=== PATIENT | male | born 1975 | race Caucasian/White ===

== ENCOUNTER 2019-05-15 13:40 | Emergency (ER) | payer MEDICARE, MEDICAID ==
[~2019-05-15] VITALS: Ht 190.5 cm; Wt 102.1 kg
--- NOTE | 2019-05-15 13:45 | NUR ---
ED Nurse Note: CALLED PATIENT, PATIENT NOT IN WAITING ROOM.
[2019-05-15 14:00] VITALS: BP 125/80
--- NOTE | 2019-05-15 14:00 | NUR ---
ED Nurse Note: PT FROM HOME CAME IN DUE TO INTERMITTENT ABD. PAIN IN EPIGASTRIC AREA X 1 WEEK. DENIES N/V. AFEBRILE UPON TRIAGE. AAO X4, AMBULATORY WITH NO RESPIRATORY DISTRESS. FAMILY MEMBER AT THE BED SIDE.
--- NOTE | 2019-05-15 14:09 | NUR ---
ED Nurse Note: DR DOMINGUEZ AT THE BED SIDE.
[2019-05-15] MEDS ORDERED: Omnipaque-300 100ml vial INJ PRN (14:15)
--- NOTE | 2019-05-15 14:33 | NUR ---
ED Nurse Note: COLLECTED BLOOD/URINE THEN SENT.
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
[2019-05-15 15:00] LABS: APPEARANCE,URINE CLEAR; BILIRUBIN, URINE NEGATIVE (NEGATIVE); COLOR,URINE PALE YELLOW; GLUCOSE, URINE (UA) NEGATIVE (NEGATIVE); KETONES,URINE NEGATIVE (NEGATIVE); LEUKOCYTE ESTERASE ,URINE NEGATIVE (NEGATIVE); NITRITE,URINE NEGATIVE (NEGATIVE); PH,URINE 9 (4.5-8.0); PROTEIN,URINE NEGATIVE (NEGATIVE); UROBILINOGEN,URINE NORMAL MG/DL (0.0-1.0)
[2019-05-15 15:08] LABS: BASOPHILS % (AUTO) 1.6 % (0.0-2.0); EOSINOPHILS % (AUTO) 2.8 % (0.0-3.0); HEMATOCRIT 45.8 % (42.0-52.0); HEMOGLOBIN 16.4 G/DL (14.2-18.0); LYMPHOCYTES % (AUTO) 25.8 % (20.0-45.0); MEAN CORPUSCULAR VOLUME 90 FL (80-99); NEUTROPHILS % (AUTO) 61.9 % (45.0-75.0); PLATELET COUNT 243 K/UL (150-450); RED BLOOD COUNT 5.07 M/UL (4.70-6.10); RED CELL DISTRIBUTION WIDTH 9.9 % (11.6-14.8); WHITE BLOOD COUNT 7.4 K/UL (4.8-10.8)
[2019-05-15 15:11] LABS: INR 0.9 (0.9-1.1)
[2019-05-15 15:13] LABS: ANION GAP 4 mmol/L (5-15); BLOOD UREA NITROGEN 12 mg/dL (7-18); CALCIUM 9.1 MG/DL (8.5-10.1); CARBON DIOXIDE 32 MMOL/L (21-32); CHLORIDE 104 MMOL/L (98-107); CREATININE 1.2 MG/DL (0.55-1.30); POTASSIUM 4.2 MMOL/L (3.5-5.1); SODIUM 140 MMOL/L (136-145)
[2019-05-15 15:20] LABS: ALANINE AMINOTRANSFERASE 36 U/L (12-78); ALBUMIN 3.5 G/DL (3.4-5.0); ALKALINE PHOSPHATASE 81 U/L (46-116); ASPARTATE AMINO TRANSFERASE 24 U/L (15-37); BILIRUBIN,TOTAL 0.3 MG/DL (0.2-1.0); CREATINE KINASE 169 U/L (26-308)
[2019-05-15] MEDS ORDERED: AMLODIPINE BESYL5 MG ORAL (15:54)
[2019-05-15] MEDS ORDERED: PROZAC20 MG ORAL (15:55)
[2019-05-15] MEDS ORDERED: ZYPREXA10 MG ORAL (15:58)
[2019-05-15] MEDS ORDERED: PROPRANOLOL HCL20 MG ORAL (15:58)
[2019-05-15] MEDS ORDERED: DEPAKOTE250 MG PO (15:58)
[2019-05-15] MEDS ORDERED: HALDOL DEC50 MG/1 ML IM (15:59)
[2019-05-15] MEDS ORDERED: INVEGA SUS156 MG/11 IM (15:59)
[2019-05-15 16:18] VITALS: BP 121/86
--- NOTE | 2019-05-15 16:49 | Diagnostic Imaging Report ---
Clinical Indication: Intermittent abdominal pain in epigastric area times one week Technique: Patient given oral contrast. IV administration nonionic contrast. Venous phase spiral acquisition obtained through the abdomen and pelvis. Multiplanar reconstructions were generated. Total dose length product 1081 mGycm. CTDIvol(s) 17 mGy. Dose reduction achieved using automated exposure control Comparison: none Findings: No evidence of colonic diverticulosis or diverticulitis. There is equivocal mild wall thickening of the transverse colon, but this is probably an artifact of under distention. The appendix is normal. No small bowel wall thickening. No small bowel distention. Distal esophagus, stomach, duodenum are unremarkable. No free or loculated intraperitoneal gas or fluid is evident. The liver, gallbladder, bile ducts, pancreas, spleen, adrenals, kidneys are unremarkable. There are somewhat prominent and abutment retroperitoneal and mesenteric root nodes noted. No pelvic mass or adenopathy. No renal or ureteral calculi, hydronephrosis, or hydroureter demonstrated. The included lung bases demonstrate minimal posterior dependent atelectatic changes, are otherwise clear. The bones are unremarkable. Impression: Equivocal mild wall thickening of the transverse colon, probably artifact of under distention, but if real could indicate colitis, nonspecific as regards etiology. No acute process otherwise Nonspecific abundant but not frankly enlarged retroperitoneal and mesenteric root lymph nodes. The CT scanner at [facility] is accredited by the [employer] and the scans are performed using protocols designed to limit radiation exposure to as low as reasonably achievable to attain images of sufficient resolution adequate for diagnostic evaluation.
--- NOTE | 2019-05-15 17:22 | Diagnostic Imaging Report ---
Indication: Chest pain Technique: One view of the chest Comparison: none Findings: Lungs and pleural spaces are clear. Heart size is normal. Impression: No acute process
[2019-05-15] MEDS ORDERED: PEPCID AC20 M2 PO (18:07)
[2019-05-15] MEDS ORDERED: DICYCLOMINE HCL10 MG ORAL (18:07)
[2019-05-15 18:16] VITALS: BP 131/70
[2019-05-15 18:22] VITALS: BP 131/70
--- NOTE | 2019-05-15 18:22 | NUR ---
ER DISCHARGE NOTE: Patient is cleared to be discharged per ERMD, pt is aox4, on room air, with stable vital signs. pt was given dc and prescription instructions, pt was able to verbalize understanding, pt id band and iv site removed without complications. pt is able to ambulate with steady gait. pt took all belongings and left [facility].
== END 2019-05-15 18:22 | disposition home or self-care (01) ==
LOC: EMR 14:10
DX: K52.9 Noninfective gastroenteritis and colitis, unspecified (principal); I10 Essential (primary) hypertension; F20.9 Schizophrenia, unspecified; F17.200 Nicotine dependence, unspecified, uncomplicated; R07.9 Chest pain, unspecified
CPT/HCPCS: 36415; 71045; 74177; 80053; 81003; 82550; 83690; 84484; 85025; 85610; 85730; 93005; 96361; 96374; 99284; Q9965; S0028; J7030

== ENCOUNTER 2019-09-09 16:22 | Emergency (ER) | payer MEDICARE, MEDICAID ==
[~2019-09-09] VITALS: Ht 190.5 cm; Wt 104.3 kg
[~2019-09-09 16:22] MED LIST: AMLODIPINE BESYL5 MG ORAL; DEPAKOTE250 MG PO; DICYCLOMINE HCL10 MG ORAL; HALDOL DEC50 MG/1 ML IM; INVEGA SUS156 MG/11 IM; PEPCID AC20 M2 PO; PROPRANOLOL HCL20 MG ORAL; PROZAC20 MG ORAL; ZYPREXA10 MG ORAL
[2019-09-09 16:45] VITALS: BP 113/81
--- NOTE | 2019-09-09 16:46 | NUR ---
ED Nurse Note: Patient walked in to ER with caregiver due to cough, congestion x 3-4 days. Per caregiver patient become confused today, was saying things that does not make sense. Patient presented with audible wheezes, AAO x4, VSS at this time.
--- NOTE | 2019-09-09 17:10 | Emergency Room Report ---
History of Present Illness General Chief Complaint: Upper Respiratory Illness Source: Patient (Zoey Han) Present Illness HPI 44 YO Male presents to the ED C/O cough, congestion, yellow sputum, wheezing and feeling SOB with conversation and exertion x 3 days. Pt. reports chills but denies fevers. He reports that he is a daily smoker. He is unsure of his vaccination status. PT. denies ST, neck pain/stiffness or photophobia. Pt. with psychiatric hx. Pt. has caregiver who reports today he was "acting strangely" saying things that didn't make sense and was urinating in a cup and on the floor. She reports symptoms resolved at this time but is concerned for UTI. Pt. has been taking his prescribed psychiatric medications as directed. Denies recent travel or ill contacts. Pt. denies hx of asthma or COPD. He denies cardiac hx other than HTN. He denies CP, palpitations, or LE swelling. He denies dizziness or syncope. Pt. denies abdominal pain, tenderness, dysuria, frequency, hematuria or urgency. denies penile d/c. He denies constipation or diarrhea. He denies recent drug use. He has hx of meth use. (Zoey Han) Allergies: Coded Allergies: No Known Allergies (Unverified , 05/15/19) Patient History Past Medical History: see triage record, psych hx Past Surgical History: none Social History: Reports: drug use - meth Reviewed Nursing Documentation: PMH: Agreed; PSxH: Agreed (Zoey Han) Nursing Documentation-PMH Past Medical History: No History, Except For Hx Hypertension: Yes History Of Psychiatric Problem: Yes - psychosis (Zoey Han) Review of Systems All Other Systems: negative except mentioned in HPI (Zoey Han) Physical Exam Vital Signs Date Time Temp Pulse Resp B/P (MAP) Pulse Ox O2 Delivery O2 Flow Rate FiO2 09/09/19 16:34 98.4 87 18 113/81 (92) 92 Room Air Sp02 EP Interpretation: reviewed, normal General Appearance: no apparent distress, alert, GCS 15, non-toxic Head: normocephalic, atraumatic Eyes: bilateral eye normal inspection, bilateral eye PERRL ENT: hearing grossly normal, normal pharynx, normal voice, uvula midline, moist mucus membranes Neck: full range of motion Respiratory: chest non-tender, no respiratory distress, no accessory muscle use , speaking full sentences, wheezing - audible wheezes Cardiovascular #1: regular rate, rhythm, no edema, normal capillary refill Gastrointestinal: non tender, soft Musculoskeletal: normal range of motion, gait/station normal, non-tender Neurologic: alert, motor strength/tone normal, oriented x3, sensory intact, responsive, speech normal Psychiatric: judgement/insight normal, memory normal, mood/affect normal, no suicidal/homicidal ideation Skin: no rash, normal color Lymphatic: no adenopathy (Zoey Han) Medical Decision Making PA Attestation Dr. Oates Is my supervising Physician whom patient management has been discussed with. (Zoey Han) Diagnostic Impression: Primary Impression: Bronchitis ER Course 44 YO Male presents to the ED C/O cough, congestion, yellow sputum, wheezing and feeling SOB with conversation and exertion x 3 days. Pt. reports chills but denies fevers. He reports that he is a daily smoker. He is unsure of his vaccination status. PT. denies ST, neck pain/stiffness or photophobia. Pt. with psychiatric hx. Pt. has caregiver who reports today he was "acting strangely" saying things that didn't make sense and was urinating in a cup and on the floor. She reports symptoms resolved at this time but is concerned for UTI. Pt. has been taking his prescribed psychiatric medications as directed. Denies recent travel or ill contacts. Pt. denies hx of asthma or COPD. He denies cardiac hx other than HTN. He denies CP, palpitations, or LE swelling. He denies dizziness or syncope. Pt. denies abdominal pain, tenderness, dysuria, frequency, hematuria or urgency. Denies penile d/c. He denies constipation or diarrhea. He denies recent drug use. He has hx of meth use. Ddx considered but are not limited to URI, pneumonia, PE, strep pharyngitis, meningitis. Vital signs: Pt.is afebrile VS are WNL Pt. 02 Saturation was 92-03% H&PE are most consistent with bronchitis ORDERS: -CXR: unremarkable -EKG 85 NSR -UA: pt. was unable to provide urine during ED stay. -UDS: pt. was unable to provide urine during ED stay. ED INTERVENTIONS: - Albuterol HHN -Duo NEb x 1 -Prednisone 60mg PO -Upon re-assessment O2 saturation has improved.Pt. lung sounds have improved but still have some expiratory wheezes. Will d/c with short course of steroids along with inhaler for close outpatient follow up with a PMD, and strict ED return precautions. -Both pt. and SAFETY AND HEALTH MANAGER at bedside from his program verbalize their understanding and agreement with the proposed treatment plan along with ED return promptly with any worsening or new symptoms. DISCHARGE: At this time pt. is stable for d/c to home. Will provide printed patient care instructions, and any necessary prescriptions. Care plan and follow up instructions have been discussed with the patient prior to discharge. (Zoey Han) EKG Diagnostic Results EP Interpretation: Dr. Oates Rate: normal - 86 bpm Rhythm: NSR ST Segments: no acute changes ASA given to the pt in ED: No PA Scribe Text This Interpretation was scribed by RACHID Han. (Zoey Han) Chest X-Ray Diagnostic Results Chest X-Ray Diagnostic Results : Chest X-Ray Ordered: Yes # of Views/Limited/Complete: 1 View Indication: Shortness of Breath EP Interpretation: Yes PA Xray: Interpretation reviewed, by supervising MD, and agrees with findings. Interpretation: no consolidation, no effusion, no pneumothorax, no acute cardiopulmonary disease Impression: No acute disease Electronically Signed by: Zoey Han PA-C (Zoey Han) Chest X-Ray Diagnostic Results : Electronically Signed by: Erna Cherry documentation of Xray reviewed by me and is accurate, Fernando Oates MD (Fernando Oates MD) Last Vital Signs Date Time Temp Pulse Resp B/P (MAP) Pulse Ox O2 Delivery O2 Flow Rate FiO2 09/09/19 16:45 98.4 18 113/81 92 Room Air 09/09/19 16:45 87 Status: improved (Zoey Han) Disposition: HOME, SELF-CARE Condition: Stable Scripts D-Methorphan Hb/Acetaminophen (Daytime Cold & Cough Liquid) 237 Ml Liquid 5 ML PO Q6HR, #237 ML Prov: Zoey Han 09/09/19 Prednisone* (PREDNISONE*) 20 Mg Tablet 40 MG ORAL DAILY for 4 Days, #8 TAB Prov: Zoey Han 09/09/19 Albuterol Sulfate* (ALBUTEROL SULFATE MDI*) 8.5 Gm Hfa.aer.ad 2 PUFF INH Q3H, #1 INH 0 Refills Prov: Zoey Han 09/09/19 Patient Instructions: Acute Bronchitis Additional Instructions: Take medications as directed. Follow up with a Primary Care Provider in 3-5 days, even if your symptoms have resolved. --Please review list of primary care clinics, if you do not already have a primary care provider Return sooner to ED if new symptoms occur, or current symptoms become worse. - Please note that this Emergency Department Report was dictated using Dr. Jerry's [employer] engineer technology software, occasionally this can lead to erroneous entry secondary to interpretation by the dictation equipment. Zoey Han Sep 09, 2019 17:10 Fernando Oates MD Sep 10, 2019 05:38
[2019-09-09] MEDS ORDERED: Albuterol ud Inhalation HHN ONE (17:15)
[2019-09-09] MEDS ORDERED: Albuterol/Ipratropium 3ml neb HHN ONE (18:00)
--- NOTE | 2019-09-09 19:30 | NUR ---
ED Nurse Note: Recieved report from sandeep Wilson to resume care, pt in bed awake and alert, pt has SUPERVISOR ORE DRESSING hand plug shaper at bedside from facility which he came, here with c/o cough and congestion, pt denies chest pain or any pain, o2 sat=98% on ra, no sob or labored breathing or cough noted, will resume care as ordered and closely monitor.
[2019-09-09] MEDS ORDERED: PREDNISONE20 MG ORAL ×2 (19:35)
[2019-09-09] MEDS ORDERED: DAYTIME COLD &237 ML PO ×2 (19:35)
[2019-09-09] MEDS ORDERED: ALBUTEROL SULF8.5 GM INH ×2 (19:35)
[2019-09-09 19:45] VITALS: BP 119/73
[2019-09-09 19:55] VITALS: BP 119/73
--- NOTE | 2019-09-09 19:55 | NUR ---
ER DISCHARGE NOTE: Patient is cleared to be discharged per ERMD, pt is aox4, on room air, with stable vital signs. pt was given dc and prescription instructions, pt was able to verbalize understanding, pt id band removed without complications. pt is able to ambulate with steady gait. pt took all belongings. header set up operator with pt.
--- NOTE | 2019-09-10 10:42 | Diagnostic Imaging Report ---
Indication: Chest pain Technique: One view of the chest Comparison: 05/15/2019 Findings: Lungs and pleural spaces are clear. Heart size is normal. No significant interim change Impression: No acute process
== END 2019-09-09 19:55 | disposition home or self-care (01) ==
LOC: EMR 19:00
DX: J20.9 Acute bronchitis, unspecified (principal); I10 Essential (primary) hypertension
CPT/HCPCS: 71045; 93005; 99284; J7512; J7620

== ENCOUNTER 2019-09-13 15:05 | Inpatient (IN) | payer MEDICARE, MEDICAID ==
[~2019-09-13] VITALS: Ht 190.5 cm; Wt 108.0 kg
[~2019-09-13 15:05] MED LIST changes: +ALBUTEROL SULF8.5 GM INH; +DAYTIME COLD &237 ML PO; +PREDNISONE20 MG ORAL
[2019-09-13] MEDS ORDERED: MIRTAZAPINE15 MG ORAL (15:22)
[2019-09-13] MEDS ORDERED: BENADRYL25 MG ORAL (15:22)
[2019-09-13] MEDS ORDERED: BENZTROPINE MESY1 MG ORAL (15:22)
[2019-09-13] MEDS ORDERED: PROZAC40 MG ORAL (15:22)
[2019-09-13] MEDS ORDERED: ATIVAN2 MG ORAL (15:22)
--- NOTE | 2019-09-13 15:23 | NUR ---
ED Nurse Note: Patient walked in from [facility] accompanied by Unified Communications Engineer d/t fall after getting up today around 1330. Patient became weak when he stood up and fell, hit his right eye when falling and has a laceration on right eye. Patient AxO x 4, no s/s of acute distress. Urine collected and sent to lab.
[2019-09-13 15:25] VITALS: BP 126/89
--- NOTE | 2019-09-13 15:35 | NUR ---
ED Nurse Note: 20 g IV started in right AC, blood drawn and sent to lab. 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
--- NOTE | 2019-09-13 15:50 | NUR ---
ED Nurse Note: Dr. Hirsch at bedside.
--- NOTE | 2019-09-13 16:23 | Diagnostic Imaging Report ---
Indication: Chest pain Technique: One view of the chest Comparison: 09/09/2019 Findings: Lungs and pleural spaces are clear. Heart size is normal. No significant change Impression: No acute process
[2019-09-13 16:29] LABS: BILIRUBIN, URINE NEGATIVE (NEGATIVE); GLUCOSE, URINE (UA) NEGATIVE (NEGATIVE); KETONES,URINE 1+ (NEGATIVE); LEUKOCYTE ESTERASE ,URINE 1+ (NEGATIVE); NITRITE,URINE NEGATIVE (NEGATIVE); PH,URINE 7 (4.5-8.0); PROTEIN,URINE 1+ (NEGATIVE); UROBILINOGEN,URINE 4 MG/DL (0.0-1.0)
[2019-09-13 16:33] LABS: APPEARANCE,URINE SLIGHTLY CLOUDY; COLOR,URINE YELLOW
[2019-09-13 16:37] LABS: ANION GAP 12 mmol/L (5-15); BLOOD UREA NITROGEN 24 mg/dL (7-18); CALCIUM 9.3 MG/DL (8.5-10.1); CARBON DIOXIDE 27 MMOL/L (21-32); CHLORIDE 108 MMOL/L (98-107); CREATININE 1.1 MG/DL (0.55-1.30); POTASSIUM 5.5 MMOL/L (3.5-5.1); SODIUM 147 MMOL/L (136-145)
[2019-09-13 16:42] LABS: ALANINE AMINOTRANSFERASE 103 U/L (12-78); ALBUMIN 3.5 G/DL (3.4-5.0); ALBUMIN/GLOBULIN RATIO 0.9 (1.0-2.7); ALKALINE PHOSPHATASE 74 U/L (46-116); ASPARTATE AMINO TRANSFERASE 51 U/L (15-37); BILIRUBIN,TOTAL 0.3 MG/DL (0.2-1.0)
[2019-09-13 16:51] LABS: HEMATOCRIT 50.1 % (42.0-52.0); HEMOGLOBIN 16.3 G/DL (14.2-18.0); MEAN CORPUSCULAR VOLUME 96 FL (80-99); PLATELET COUNT 365 K/UL (150-450); RED BLOOD COUNT 5.24 M/UL (4.70-6.10); WHITE BLOOD COUNT 15.9 K/UL (4.8-10.8)
--- NOTE | 2019-09-13 16:54 | Emergency Room Report ---
History of Present Illness General Chief Complaint: Generalized Weakness Source: Patient, Friend Present Illness HPI This patient is residing in a rehabilitation facility. He has a history of drug dependence. He also has a history of schizophrenia. He has had a respiratory illness for the past week. He was seen here at [facility] a few days ago and diagnosed with bronchitis. He complains of cough with thick sputum production. He has been using the prednisone, albuterol inhaler and DayQuil and NyQuil. He states that he has been fatigued and has had generalized weakness that is been especially over the past few days. He states that today his legs gave out and he fell forward and hit his face on a hard object. He has a laceration of his right eyelid. He denies headache or neck pain. He denies blurry vision. He denies chest pain. He has no other complaints. Allergies: Coded Allergies: No Known Allergies (Unverified , 05/15/19) Patient History Past Medical History: see triage record, HTN, psych hx - Schizophrenia Social History: Denies: smoking, alcohol use, drug use Reviewed Nursing Documentation: PMH: Agreed; PSxH: Agreed Nursing Documentation-PMH Past Medical History: No History, Except For Hx Hypertension: Yes Review of Systems All Other Systems: negative except mentioned in HPI Physical Exam Vital Signs Date Time Temp Pulse Resp B/P (MAP) Pulse Ox O2 Delivery O2 Flow Rate FiO2 09/13/19 15:10 98.8 83 19 126/89 (101) 92 Room Air Sp02 EP Interpretation: reviewed, normal General Appearance: no apparent distress, alert, GCS 15, non-toxic Head: normocephalic, atraumatic Eyes: right eye other - R. eye with conjuctival erythema. No hyphema. Normal pupil and reactivity.; bilateral eye PERRL ENT: hearing grossly normal, normal pharynx, no angioedema, normal voice Neck: full range of motion, supple/symm/no masses Respiratory: chest non-tender, no respiratory distress, no retraction, no accessory muscle use, speaking full sentences, wheezing, expiration Cardiovascular #1: regular rate, rhythm, no edema Gastrointestinal: normal bowel sounds, non tender, soft, non-distended, no guarding, no rebound Rectal: deferred Genitourinary: normal inspection, no CVA tenderness Musculoskeletal: back normal, normal range of motion, gait/station normal, non- tender Neurologic: alert, motor strength/tone normal, oriented x3, sensory intact, responsive, speech normal Psychiatric: judgement/insight normal, memory normal, mood/affect normal, no suicidal/homicidal ideation Skin: no rash, normal color, laceration - Stellate laceration involving the medial upper and lower eyelid and corner of the eye, possible tear duct involvement. Medical Decision Making Diagnostic Impression: Primary Impression: Acute bronchospasm due to viral infection Additional Impression: Facial laceration ER Course This patient has had a week of cough and wheezing. The patient presents after a near syncopal episode and a fall with a laceration to the face today. I am concerned as this patient continues to have wheezing on exam. The patient was given breathing treatments here in the emergency department and as a precaution I gave the patient broad-spectrum antibiotics and I felt that this patient should be admitted for further pulmonary hygiene. The patient's globe exam appears intact. There is no evidence of a ruptured globe. However, the patient does have a complicated eyelid laceration that may involve the tear duct. Therefore, I contacted multiple plastic surgeons to repair this complicated laceration. The only plastic surgeon that was available was Dr. Eric Tinsley who had to commute from his office in [place]. I attempted 5 other plastic surgeons and none of them were available. Dr. Tinsley requested that he do the repair in the emergency department and so the patient did board in the emergency department until his arrival which delayed his movement to the inpatient room. I felt that it was important that this laceration be repaired for proper healing and closure of the eyelids and repair of the tear duct. See Dr. Tinsley's procedure note. Laboratory Tests Test 09/13/19 15:35 White Blood Count 15.9 K/UL (4.8-10.8) H Red Blood Count 5.24 M/UL (4.70-6.10) Hemoglobin 16.3 G/DL (14.2-18.0) Hematocrit 50.1 % (42.0-52.0) Mean Corpuscular Volume 96 FL (80-99) Mean Corpuscular Hemoglobin 31.1 PG (27.0-31.0) H Mean Corpuscular Hemoglobin Concent 32.6 G/DL (32.0-36.0) Red Cell Distribution Width 13.0 % (11.6-14.8) Platelet Count 365 K/UL (150-450) Mean Platelet Volume 7.3 FL (6.5-10.1) Neutrophils (%) (Auto) % (45.0-75.0) Lymphocytes (%) (Auto) % (20.0-45.0) Monocytes (%) (Auto) % (1.0-10.0) Eosinophils (%) (Auto) % (0.0-3.0) Basophils (%) (Auto) % (0.0-2.0) Differential Total Cells Counted 100 Neutrophils % (Manual) 82 % (45-75) H Lymphocytes % (Manual) 15 % (20-45) L Monocytes % (Manual) 3 % (1-10) Eosinophils % (Manual) 0 % (0-3) Basophils % (Manual) 0 % (0-2) Band Neutrophils 0 % (0-8) Platelet Estimate Adequate Platelet Morphology Normal Hypochromasia 2+ Anisocytosis 2+ Urine Color Yellow Urine Appearance Slightly cloudy Urine pH 7 (4.5-8.0) Urine Specific [place] 1.010 (1.005-1.035) Urine Protein 1+ (NEGATIVE) H Urine Glucose (UA) Negative (NEGATIVE) Urine Ketones 1+ (NEGATIVE) H Urine Blood 1+ (NEGATIVE) H Urine Nitrite Negative (NEGATIVE) Urine Bilirubin Negative (NEGATIVE) Urine Urobilinogen 4 MG/DL (0.0-1.0) H Urine Leukocyte Esterase 1+ (NEGATIVE) H Urine RBC 2-4 /HPF (0 - 0) H Urine WBC 5-10 /HPF (0 - 0) H Urine Squamous Epithelial Cells Occasional /LPF Urine Bacteria Few /HPF (NONE) Urine Mucus Many /LPF (NONE/OCC) H Sodium Level 147 MMOL/L (136-145) H Potassium Level 5.5 MMOL/L (3.5-5.1) H Chloride Level 108 MMOL/L (98-107) H Carbon Dioxide Level 27 MMOL/L (21-32) Anion Gap 12 mmol/L (5-15) Blood Urea Nitrogen 24 mg/dL (7-18) H Creatinine 1.1 MG/DL (0.55-1.30) Estimate Glomerular Filtration Rate > 60 mL/min (>60) Glucose Level 126 MG/DL (74-106) H Calcium Level 9.3 MG/DL (8.5-10.1) Total Bilirubin 0.3 MG/DL (0.2-1.0) Aspartate Amino Transferase (AST) 51 U/L (15-37) H Alanine Aminotransferase (ALT) 103 U/L (12-78) H Alkaline Phosphatase 74 U/L (46-116) Troponin I 0.000 ng/mL (0.000-0.056) Total Protein 7.3 G/DL (6.4-8.2) Albumin 3.5 G/DL (3.4-5.0) Globulin 3.8 g/dL Albumin/Globulin Ratio 0.9 (1.0-2.7) L Urine Opiates Screen Negative (NEGATIVE) Urine Barbiturates Screen Negative (NEGATIVE) Phencyclidine (PCP) Screen Negative (NEGATIVE) Urine Amphetamines Screen Negative (NEGATIVE) Urine Benzodiazepines Screen Negative (NEGATIVE) Urine Cocaine Screen Negative (NEGATIVE) Urine Marijuana (THC) Screen Negative (NEGATIVE) Microbiology Date/Time Source Procedure Growth Status 09/13/19 15:35 Nasal Nares - Final Complete 09/13/19 15:35 Nasal Nares - Final Complete EKG Diagnostic Results Rate: normal Rhythm: NSR ST Segments: no acute changes Rhythm Strip Diag. Results EP Interpretation: yes Rate: 70's Rhythm: NSR, no PVC's, no ectopy Chest X-Ray Diagnostic Results Chest X-Ray Diagnostic Results : Chest X-Ray Ordered: Yes # of Views/Limited/Complete: 1 View Indication: Shortness of Breath EP Interpretation: Yes Interpretation: no consolidation, no effusion, no pneumothorax, no acute cardiopulmonary disease Impression: No acute disease Electronically Signed by: Diann Donnelly DO Last Vital Signs Date Time Temp Pulse Resp B/P (MAP) Pulse Ox O2 Delivery O2 Flow Rate FiO2 09/13/19 15:25 98.8 86 19 126/89 98 Room Air Disposition: ADMITTED INPATIENT Condition: Serious Referrals: NOT CHOSEN IPA/,REFERRING (PCP) Diann Donnelly DO Sep 13, 2019 16:54
[2019-09-13 17:00] VITALS: BP 128/87
[2019-09-13] MEDS ORDERED: cefTRIAXone 1 GM in NS 55 ML IVPB ONE (17:00)
[2019-09-13] MEDS ORDERED: Ipratropium 0.02% Inh Soln 2.5ml UD HHN ONE (17:45)
[2019-09-13] MEDS ORDERED: Albuterol ud Inhalation HHN ONE (17:45)
[2019-09-13] MEDS ORDERED: Ipratropium 0.02% Inh Soln 2.5ml UD ONE (17:46)
--- NOTE | 2019-09-13 19:05 | NUR ---
HAND-OFF: Report given to Nneka RICHEY.
[2019-09-13] MEDS ORDERED: Lidocaine 2% MPF 5ml Vial INJ ONE (19:30)
[2019-09-13 19:36] VITALS: BP 140/92
--- NOTE | 2019-09-13 19:39 | NUR ---
ER Nurse Note: Pt calm, alert, no signs of distress. Pt on 1L MC O2 for comfort. Pt is spitting thick white mucus with slight cough. VSS. Meds pulled for MD; awaiting plastic surgeon for LT eye. All safety measures met; will continue to montior.
--- NOTE | 2019-09-13 20:13 | NUR ---
dionne pereyra (mother) [phone]
--- NOTE | 2019-09-13 20:29 | NUR ---
ER Nurse Note: Pt condition remains at baseline. Dr. Kaplan at bedside.
[2019-09-13 21:03] VITALS: BP 136/86
--- NOTE | 2019-09-13 21:15 | NUR ---
ER Nurse Note: Report given to ROSSI Rosas for continuty of care. Pt VSS, no signs of distress. SLIV patent. All belongings with pt.
[2019-09-13] MEDS ORDERED: Nitroglycerin Subl 0.4mg tab SL PRN (21:30)
[2019-09-13] MEDS ORDERED: LORazepam Inj 2mg/ml 1ml IV PRN (21:30)
[2019-09-13] MEDS ORDERED: Albuterol/Ipratropium 3ml neb HHN PRN (21:30)
--- NOTE | 2019-09-13 21:30 | NUR ---
ER Nurse Note: Pt transfered to 409-2.
--- NOTE | 2019-09-13 22:00 | NUR ---
NURSE NOTES: Patient in bed, awake, alert x 4. Able to make needs known. S/P fall from home. Yellow gown, yellow socks on. Educated patient regarding using call light or any help needed. Informed patient if he wants to to sit on the side of the bed first and wait for nurse. Bed in low and locked position provided safe environment. Skin is warm and dry to touch. Noted with right eye laceration, sutures noted. No pain at the site at the moment. Abdomen is soft. IV site noted. Call light is at bedside. Will continue plan of care.
--- NOTE | 2019-09-13 22:00 | Consultation ---
DATE OF CONSULTATION: 09/13/2019 HISTORY OF PRESENT ILLNESS: This is a 44-year-old gentleman with a past history significant for alcohol use. The patient claims that he felt euphoric and fell forward hitting the front of his face. The patient sustained a complicated laceration on his upper lower eyelid and along his medial canthal region. The patient was seen by the ER physicians here at [facility] where a plastic surgery was called for evaluation of his injuries. PHYSICAL EXAMINATION: On directed physical exam on the eye, there was a complicated laceration which extended from the lid margin on the upper eyelid superiorly approximately a centimeter up. He has also 2 lacerations, 1 on the medial canthal area in a V-type pattern with some avulsion of skin. On the lower lid, there was a laceration near the lacrimal duct, however, that cannot be examined closely due to the patient's condition and extended inferiorly towards the inferior of the mid cheek area. A discussion was done with the patient concerning the injury. IMPRESSION: This is a 44-year-old gentleman with the complex upper lower eyelid laceration on the right side. PLAN: Repair of the laceration. Medardo Tinsley M.D. DR: JAELYN JOB#: [id number] CC: Medardo Tinsley M.D.; [address] [place] [address] Rd, [address]; [place] [address]
--- NOTE | 2019-09-13 22:15 | Procedure Note ---
DATE OF PROCEDURE: 09/13/2019 PREOPERATIVE DIAGNOSIS: Complex laceration of the right upper and lower eyelid, length approximately 4 cm. POSTOPERATIVE DIAGNOSIS: Complex laceration of the right upper and lower eyelid, length approximately 4 cm. PROCEDURE: Repair of complex laceration of the right upper and lower eyelid. SURGEON: Medardo Tinsley M.D. ANESTHESIA: Done under local. ESTIMATED BLOOD LOSS: Less than 5 mL. COMPLICATIONS: None. INDICATION FOR THE PROCEDURE: This is a 44-year-old gentleman, who sustained a complex laceration of his right upper and lower eyelid. The patient was seen by the emergency room where plastic surgery was called for repair of this laceration. DESCRIPTION OF THE PROCEDURE: The patient was seen in the emergency room where the wound was evaluated. The wound was cleaned with sterile water. The wound was anesthetized with 3 mL of 2% lidocaine with epinephrine. Following this, identification of the edges of the wound were cleaned. The laceration on the upper eyelids were then repaired with 5-0 fast-absorbing plain gut sutures. Cleaning of the medial canthal and lower lids were also done. The edges of the wound were then also reapproximated with 5-0 plain gut sutures. At the end of the case, the patient tolerated the procedure well. The patient is presently being admitted to the inpatient facility due to his respiratory status. Medardo Tinsley M.D. DR: JAELYN JOB#: [id number] CC: Medardo Tinsley M.D.; [address] [place] [address] Rd, [address]; [place] [address]
[2019-09-13] MEDS: Piperacillin/Tazobactam 3.375 GM in D5W 110 ML IVPB SCH (22:26)
[2019-09-14] VITALS (7 sets, daily range): BP systolic 117–135; BP diastolic 83–98
[2019-09-14] MEDS ORDERED: Solu-MEDROL 125mg Inj IV SCH
--- NOTE | 2019-09-14 00:30 | NUR ---
NURSE NOTES: messaged pharmacy regarding patient not listed on the pyxis. records technician was informed, refractory products supervisor informed. Unable to remove medication.
--- NOTE | 2019-09-14 01:15 | NUR ---
NURSE NOTES: Spoke to pharmacy ([facility]) after hours, regarding patient not listed in the pyxis. Was informed that it has to do with admitting.
--- NOTE | 2019-09-14 01:30 | NUR ---
NURSE NOTES: Block Paver Melvina pulled the vacation via inventory count, count before pulling solu-medrol 125 mg is 6. After medication pulled out, remaining 5 in the bin.
[2019-09-14] MEDS: Solu-MEDROL 125mg Inj IV SCH ×3 (01:44→12:27)
[2019-09-14] MEDS: Piperacillin/Tazobactam 3.375 GM in D5W 110 ML IVPB SCH ×3 (05:53→21:00)
--- NOTE | 2019-09-14 07:07 | NUR ---
HAND-OFF: Report given to ROSSI Trivedi.
--- NOTE | 2019-09-14 07:23 | NUR ---
NURSE NOTES: Endorsed to next shift, patient is fall risk. Yellow gown, yellow socks. Educated patient regarding using call light. Oriented patient to room. High fall risk endorsed to next shift nurse. Bed in low and locked position. Provided safe environment. call light is at bedside.
--- NOTE | 2019-09-14 08:00 | NUR ---
NURSE NOTES: Patient alert and oriented,respirations unlabored.Patient sitting up and eating breakfast.No bleeding noted from laceration over the left eye.No complaints at this time.Call light within reach,and reinforce to patient to use ariana light for assist.
[2019-09-14] MEDS ORDERED: OLANZapine 10mg tab ORAL SCH (09:00)
[2019-09-14] MEDS ORDERED: Heparin 5000 units/ml inj SUBQ SCH (09:00)
--- NOTE | 2019-09-14 10:20 | NUR ---
CASE MANAGEMENT:INITIAL REVIEW 44 YR OLD MALE FROM HOME/REHABILITATION CENTER CC; GENERALIZED WEAKNESS SI;AC BRONCHOSPASM D/T VIRAL INFECTION. FACIAL LACERATION. 98.8 83 22 140/92 92% ON RA WBC 15.9 NA+ 147 K+ 5.5 CL 108 IS;IVF NS BOLUS ROCEPHIN IV ONCE DUO NEB HHN ONCE RT EYELID LACERATION REPAIR ADMITTED TO MED SURG MED SURG STATUS DCP;FROM [facility] STARTS NOW INTERIM HOUSING
--- NOTE | 2019-09-14 10:32 | Diagnostic Imaging Report ---
. Indication: Pain, trauma, status post fall Technique: Noncontrast spiral acquisitions obtained through the orbits Multiplanar reconstructions were generated. Total dose length product 1200 mGycm. CTDIvol(s) 53 mGy. Radiation dose was minimized using automated exposure control Comparison: none Findings: Soft tissue gas is seen in the preseptal right orbit, particularly medially, immediately adjacent to and surrounding the right optic globe. A very small amount of gas is also seen superomedially in the retroseptal orbital fat immediately adjacent to the optic globe. There is also some gas in the anterior medial orbital retroseptal fat immediately adjacent to the anterior lamina appreciated. The gross of the optic globe appear intact, and there is normal attenuation of the intrahepatic contents. No soft tissue gas within the right optic globe is demonstrated. There is some irregularity of the anterior nasal bone. There is no significant overlying soft tissue swelling The nasal septum appears intact. The maxillary nasal spine is not included in the imaging volume. The sinuses are clear. The visualized intracranial structures are unremarkable. Impression: Soft tissue gas surrounding the optic globe, as described, consistent with stated clinical history of penetrating trauma. No definite evidence of injury of the optic globe itself. Nasal bone deformity, acuity indeterminate fracture possible The CT scanner at [facility] is accredited by the [employer] and the scans are performed using protocols designed to limit radiation exposure to as low as reasonably achievable to attain images of sufficient resolution adequate for diagnostic evaluation.
[2019-09-14] MEDS: Depakote 500mg tab ORAL SCH (11:03)
[2019-09-14] MEDS: Theophylline ER 100mg ORAL SCH ×2 (11:05→21:00)
[2019-09-14] MEDS: OLANZapine 10mg tab ORAL SCH (11:05)
[2019-09-14] MEDS: Heparin 5000 units/ml inj SUBQ SCH ×2 (11:14→21:01)
--- NOTE | 2019-09-14 14:56 | Consultation ---
History of Present Illness General Date patient seen: Sep 14, 2019 Chief Complaint: Generalized Weakness Present Illness HPI 44 year old male with a history of schizophrenia, residing in a rehabilitation facility because of drug dependence presented to ER after an episode of fall and also complains of cough with thick sputum production. He states that he has been fatigued and has had generalized weakness and his legs gave out and he fell forward and hit his face on a hard object. He had a laceration of his right eyelid. He denies headache or neck pain. He was seen last night by a plastic surgeon who sutured the complex laceration of the eyelid. He is admitted for acute bronchitis and dyspnea. Allergies: Coded Allergies: No Known Allergies (Unverified , 05/15/19) Medication History Scheduled Amlodipine Besylate* (Amlodipine Besylate*), 5 MG ORAL DAILY, (Reported) Benztropine Mesylate* (Benztropine Mesylate*), 1 MG ORAL BID, (Reported) Diphenhydramine Hcl* (Benadryl*), 50 MG ORAL DAILY, (Reported) Divalproex Sodium* (Depakote*), 500 MG PO DAILY, (Reported) Divalproex Sodium* (Depakote*), 1,000 MG PO DAILY, (Reported) Fluoxetine Hcl* (Prozac*), 60 MG ORAL DAILY, (Reported) Mirtazapine* (Remeron*), 7.5 MG ORAL BEDTIME, (Reported) Olanzapine* (Zyprexa*), 40 MG ORAL DAILY, (Reported) Propranolol Hcl* (Inderal*), 30 MG ORAL BID, (Reported) Scheduled PRN Lorazepam* (Ativan*), 2 MG ORAL BID PRN for Agitation, (Reported) Patient History Healthcare decision maker Resuscitation status Advanced Directive on File Past Medical/Surgical History Past Medical/Surgical History: (1) Purulent bronchitis (2) Drug dependency (3) History of psychiatric disorder Review of Systems All Other Systems: negative except mentioned in HPI Physical Exam General Appearance: WD/WN, alert Lines, tubes and drains: central line HEENT: normocephalic, atraumatic Neck: non-tender, normal alignment Respiratory/Chest: chest wall non-tender, lungs clear, normal breath sounds Cardiovascular/Chest: normal peripheral pulses, normal rate Last 24 Hour Vital Signs Date Time Temp Pulse Resp B/P (MAP) Pulse Ox O2 Delivery O2 Flow Rate FiO2 09/14/19 12:00 98.5 87 19 127/83 (98) 96 09/14/19 11:00 117/83 (94) 09/14/19 09:00 Room Air 09/14/19 08:00 97.9 90 18 133/98 (110) 95 09/14/19 03:53 98.3 80 18 132/94 (107) 97 09/14/19 00:00 98.2 77 18 130/94 (106) 94 09/13/19 23:01 Room Air 09/13/19 21:30 98.2 77 20 136/86 96 Nasal Cannula 1.0 21 09/13/19 21:03 98.2 77 20 136/86 96 Nasal Cannula 1.0 09/13/19 19:36 98.2 78 22 140/92 98 Nasal Cannula 1.0 09/13/19 17:55 81 20 99 Room Air 21 76 20 94 09/13/19 17:00 98.5 83 19 128/87 100 Room Air 09/13/19 15:25 98.8 86 19 126/89 98 Room Air 09/13/19 15:25 83 19 Room Air 09/13/19 15:10 98.8 83 19 126/89 (101) 92 Room Air Intake and Output 09/13/19 09/14/19 19:00 07:00 Intake Total 1000 ml 165.0 ml Balance 1000 ml 165.0 ml Intake Oral 0 ml IV Total 1000 ml 165.0 ml # Voids 1 Laboratory Tests Test 09/13/19 15:35 White Blood Count 15.9 K/UL (4.8-10.8) H Red Blood Count 5.24 M/UL (4.70-6.10) Hemoglobin 16.3 G/DL (14.2-18.0) Hematocrit 50.1 % (42.0-52.0) Mean Corpuscular Volume 96 FL (80-99) Mean Corpuscular Hemoglobin 31.1 PG (27.0-31.0) H Mean Corpuscular Hemoglobin Concent 32.6 G/DL (32.0-36.0) Red Cell Distribution Width 13.0 % (11.6-14.8) Platelet Count 365 K/UL (150-450) Mean Platelet Volume 7.3 FL (6.5-10.1) Neutrophils (%) (Auto) % (45.0-75.0) Lymphocytes (%) (Auto) % (20.0-45.0) Monocytes (%) (Auto) % (1.0-10.0) Eosinophils (%) (Auto) % (0.0-3.0) Basophils (%) (Auto) % (0.0-2.0) Differential Total Cells Counted 100 Neutrophils % (Manual) 82 % (45-75) H Lymphocytes % (Manual) 15 % (20-45) L Monocytes % (Manual) 3 % (1-10) Eosinophils % (Manual) 0 % (0-3) Basophils % (Manual) 0 % (0-2) Band Neutrophils 0 % (0-8) Platelet Estimate Adequate Platelet Morphology Normal Red Blood Cell Morphology Normal Hypochromasia Anisocytosis Urine Color Yellow Urine Appearance Slightly cloudy Urine pH 7 (4.5-8.0) Urine Specific [place] 1.010 (1.005-1.035) Urine Protein 1+ (NEGATIVE) H Urine Glucose (UA) Negative (NEGATIVE) Urine Ketones 1+ (NEGATIVE) H Urine Blood 1+ (NEGATIVE) H Urine Nitrite Negative (NEGATIVE) Urine Bilirubin Negative (NEGATIVE) Urine Urobilinogen 4 MG/DL (0.0-1.0) H Urine Leukocyte Esterase 1+ (NEGATIVE) H Urine RBC 2-4 /HPF (0 - 0) H Urine WBC 5-10 /HPF (0 - 0) H Urine Squamous Epithelial Cells Occasional /LPF Urine Bacteria Few /HPF (NONE) Urine Mucus Many /LPF (NONE/OCC) H Sodium Level 147 MMOL/L (136-145) H Potassium Level 5.5 MMOL/L (3.5-5.1) H Chloride Level 108 MMOL/L (98-107) H Carbon Dioxide Level 27 MMOL/L (21-32) Anion Gap 12 mmol/L (5-15) Blood Urea Nitrogen 24 mg/dL (7-18) H Creatinine 1.1 MG/DL (0.55-1.30) Estimat Glomerular Filtration Rate > 60 mL/min (>60) Glucose Level 126 MG/DL (74-106) H Calcium Level 9.3 MG/DL (8.5-10.1) Total Bilirubin 0.3 MG/DL (0.2-1.0) Aspartate Amino Transf (AST/SGOT) 51 U/L (15-37) H Alanine Aminotransferase (ALT/SGPT) 103 U/L (12-78) H Alkaline Phosphatase 74 U/L (46-116) Troponin I 0.000 ng/mL (0.000-0.056) Total Protein 7.3 G/DL (6.4-8.2) Albumin 3.5 G/DL (3.4-5.0) Globulin 3.8 g/dL Albumin/Globulin Ratio 0.9 (1.0-2.7) L Urine Opiates Screen Negative (NEGATIVE) Urine Barbiturates Screen Negative (NEGATIVE) Phencyclidine (PCP) Screen Negative (NEGATIVE) Urine Amphetamines Screen Negative (NEGATIVE) Urine Benzodiazepines Screen Negative (NEGATIVE) Urine Cocaine Screen Negative (NEGATIVE) Urine Marijuana (THC) Screen Negative (NEGATIVE) Microbiology Date/Time Source Procedure Growth Status 09/13/19 15:35 Nasal Nares - Final Complete 09/13/19 15:35 Nasal Nares - Final Complete Height (Feet): 6 Height (Inches): 3.00 Weight (Pounds): 238 Medications Current Medications Medications (Trade) Dose Ordered Sig/William Route PRN Reason Start Time Stop Time Status Last Admin Dose Admin Albuterol/ Ipratropium (Albuterol/ Ipratropium) 3 ml EVERY 4 HOURS PRN HHN dyspnea 09/13/19 21:30 09/18/19 21:29 Amlodipine Besylate (Norvasc) 5 mg DAILY ORAL 09/14/19 09:00 10/14/19 08:59 Dextrose (Dextrose 50%) 25 ml Q30M PRN IV Hypoglycemia 09/13/19 21:30 10/13/19 21:29 Dextrose (Dextrose 50%) 50 ml Q30M PRN IV Hypoglycemia 09/13/19 21:30 10/13/19 21:29 Divalproex Sodium (Depakote) 1,000 mg DAILY ORAL 09/14/19 09:00 10/14/19 08:59 09/14/19 11:03 Fluoxetine HCl (PROzac) 60 mg DAILY ORAL 09/14/19 09:00 10/14/19 08:59 09/14/19 11:04 Heparin Sodium (Porcine) (Heparin 5000 units/ml) 5,000 units EVERY 12 HOURS SUBQ 09/14/19 09:00 10/14/19 08:59 09/14/19 11:14 Lorazepam (Ativan 2mg/ml 1ml) 0.5 mg Q4H PRN IV For Anxiety 09/13/19 21:30 09/20/19 21:29 Methylprednisolone Sodium Succinate (Solu-MEDROL) 60 mg EVERY 6 HOURS IV 09/14/19 00:00 10/14/19 00:00 09/14/19 12:27 Mirtazapine (Remeron) 7.5 mg BEDTIME ORAL 09/14/19 21:00 10/14/19 20:59 Nitroglycerin (Ntg) 0.4 mg Q5M X 3 DOSES PRN SL Prn Chest Pain 09/13/19 21:30 10/13/19 21:29 Olanzapine (ZyPREXA) 40 mg DAILY ORAL 09/14/19 09:00 10/14/19 08:59 09/14/19 11:05 Ondansetron HCl (Zofran) 4 mg Q6H PRN IVP Nausea & Vomiting 09/13/19 21:30 10/13/19 21:29 Piperacillin Sod/ Tazobactam Sod 3.375 gm/Dextrose 110 ml @ 27.5 mls/hr EVERY 8 HOURS IVPB 09/13/19 22:00 09/20/19 21:59 09/14/19 14:08 Promethazine HCl/ Codeine (Phenergan with Codeine) 5 ml EVERY 6 HOURS PRN ORAL cough 09/13/19 21:30 10/13/19 21:29 Temazepam (Restoril) 15 mg HSPRN PRN ORAL Insomnia 09/13/19 21:30 09/20/19 21:29 Theophylline ([place]) 100 mg EVERY 12 HOURS ORAL 09/14/19 09:00 10/14/19 08:59 09/14/19 11:05 Assessment/Plan Problem List: (1) Facial laceration ICD Codes: S01.81XA - Laceration without foreign body of other part of head, initial encounter SNOMED: 098098795, 840335532 (2) Acute bronchospasm due to viral infection ICD Codes: J98.01 - Acute bronchospasm; B34.9 - Viral infection, unspecified SNOMED: 86782342787921, 266807724 (3) Purulent bronchitis ICD Codes: J41.1 - Mucopurulent chronic bronchitis SNOMED: 63123095 (4) Drug dependency ICD Codes: F19.20 - Other psychoactive substance dependence, uncomplicated SNOMED: 219372776 Assessment/Plan: respiratory treatment check sputum antitussives B2 agonists prn ID to see for abx psychiatry to review psych meds dvt prophylaxis Ana Dorado MD Sep 14, 2019 14:56
--- NOTE | 2019-09-14 16:17 | NUR ---
SLOT OPERATIONS DIRECTOR CONSULT CAMELIA received a consult for substance abuse. CAMELIA met w/ pt and completed the assessment. Pt presents as cooperative and A&O4x. Pt is single, never and has no children. Pt resides at [facility] (court ordered program) [address] [place] [id number]. Pt has been participating in the program over a year. Pt denies current probation/parole. Pt is independent w/ ADLs and ambulatory w/o DMEs. Pt has hx of methamphetamine abuse. RUDS all negative. Emergency contact provided : Tracy Nuñez (mother) [phone] & [phone]. Pt plans to return his previous residence upon [place]. Pt has a behavioral health case manager named Tanya at [facility] [phone]. Pt does not share any concern/needs at this time. Signed: 09/14/19 at 1620 by MARJAN DENISE <Co-Signature Required>
--- NOTE | 2019-09-14 18:00 | NUR ---
NURSE NOTES: patient ambulated through out the day,gait is steady.No complaint of dizziness.Call light within reach.Continue to asses for fall risk.call light within reach.
--- NOTE | 2019-09-14 19:11 | NUR ---
NURSE NOTES: Patient is awake, alert , verbally responsive. able to make needs known. Yellow gown, socks noted. Fall risk, s/p fall from home. Educated patient to use call light. Oriented patient to the room. IV site noted. Iv fluid is infusing as ordered. No complaint of pain or discomfort ntoed. Abdomen is soft and non distended. SKin is warm and dry to touch. Bed in low and locked position provided safe environment. Call light is at bedside. Will continue plan of care.
--- NOTE | 2019-09-14 19:32 | NUR ---
HAND-OFF: Report given to Brad RICHEY fall risk assesment endorse.Patient gait steady.
--- NOTE | 2019-09-14 19:58 | History & Physical ---
History and Physical History & Physicial Dictated for Int Med-DR Tran no. [id number]. James Miner MD Sep 14, 2019 19:58
[2019-09-15] VITALS: BP 130/90
--- NOTE | 2019-09-15 01:30 | History and Physical Report ---
DATE OF ADMISSION: 09/13/2019 CHIEF COMPLAINT: The patient is a 44-year-old male, who presents with a chief complaint of laceration of the eyelid. HISTORY OF PRESENT ILLNESS: The patient was seen at [facility] 2 days previously for bronchitis. The patient was discharged back to [facility]. According to the patient, he has had increasing cough over the last couple of days. The patient has become increasingly fatigued. The patient states his leg gave out. The patient fell forward and struck his right eye. The patient suffered a laceration to the right upper and lower eyelid. The patient presented to [place] emergency room. The patient is admitted with laceration of the right upper and lower eyelid for surgical repair. REVIEW OF SYSTEMS: CONSTITUTIONAL: The patient denies weight loss or weight gain. The patient denies fevers or chills. HEENT: The patient denies ear or throat pain. The patient denies headache. CARDIOVASCULAR: The patient denies palpitation or chest pain. CHEST: The patient complains of cough productive of a yellowish sputum. The patient denies wheezes. ABDOMEN: The patient denies nausea, vomiting, diarrhea, or constipation. GENITOURINARY: The patient denies dysuria or increased frequency of urination. NEUROMUSCULAR: The patient denies seizures or generalized weakness. PAST MEDICAL HISTORY: Significant for, 1. Hypertension. 2. Schizophrenia. PAST SURGICAL HISTORY: The patient denies. CURRENT MEDICATIONS: Significant for, 1. Amlodipine 5 mg p.o. daily. 2. Benztropine 1 mg p.o. twice daily. 3. Depakote 500 mg p.o. daily. 4. Depakote 1000 mg p.o. at bedtime. 5. Prozac 60 mg p.o. daily. 6. Ativan 2 mg p.o. twice daily p.r.n. 7. Mirtazapine 7.5 mg p.o. at bedtime. 8. Zyprexa 40 mg p.o. daily. 9. Inderal 30 mg p.o. twice daily. ALLERGIES: No known drug allergies. SOCIAL HISTORY: The patient is single and is a resident of [facility]. The patient denies tobacco or alcohol use. PHYSICAL EXAMINATION: VITAL SIGNS: Temperature 98.3, respirations 18, pulse 97, and blood pressure 132/94. GENERAL: The patient is a well-developed and well-nourished male, in no apparent distress. HEENT: Eyes, pupils are equal and responsive to light and accommodation. Extraocular movements are intact. NECK: Supple without lymphadenopathy. CHEST: Lungs are clear to auscultation bilaterally without wheezes or rales. CARDIOVASCULAR: Regular rhythm and rate. S1, S2 are normal without murmurs, rubs, or gallops. ABDOMEN: Soft, nontender, and nondistended. Positive bowel sounds. No evidence of hepatosplenomegaly. Currently, no rebound or guarding noted. EXTREMITIES: Negative for clubbing, cyanosis, or edema. RECTAL/GENITAL: Not performed. NEUROLOGIC: Cranial nerves II through XII are grossly intact without focal deficits. Motor strength is 5/5 bilaterally. Deep tendon reflexes are 2+ plantar. LABORATORY STUDIES: WBC 15.9, hemoglobin 16.3, hematocrit 50.1, and platelets 365,000. Sodium 147, potassium 5.5, chloride 108, CO2 27, BUN 24, creatinine 1.1, and glucose 126. AST elevated at 51 and ALT elevated at 103. Troponin 0.0. A CT scan of the brain and orbits revealed soft tissue gas surrounding the right optic globe consistent with trauma otherwise without fractures. ASSESSMENT: This is a 44-year-old male. 1. Laceration of the right upper and lower eyelid. 2. Contusion of the right eye. 3. Fatigue. 4. Bronchitis. 5. Hypertension. 6. Schizophrenia. TREATMENT: 1. Laceration of the right upper and lower eyelid. An Ophthalmology consultation has been obtained with Dr. Medardo Tinsley. The patient is status post laceration repair under local anesthesia. We will follow recommendations of Ophthalmology. 2. Contusion of the right eye. 3. Bronchitis. The patient has been placed empirically on intravenous Zosyn and Solu-Medrol. A Pulmonary consultation has been obtained with Dr. Ana Dorado. We will follow recommendations pf Pulmonary. 4. Hypertension. Continue propranolol and amlodipine as above. 5. Schizophrenia. Continue Zyprexa, Remeron, Ativan, Prozac and Depakote as above. James Miner M.D. DR: STANFORD JOB#: [id number] CC:
[2019-09-15 04:07] VITALS: BP 132/84
[2019-09-15] MEDS: Piperacillin/Tazobactam 3.375 GM in D5W 110 ML IVPB SCH ×3 (05:35→21:22)
--- NOTE | 2019-09-15 07:11 | NUR ---
HAND-OFF: Report given to Jerez Rn.
[2019-09-15 07:15] LABS: HEMATOCRIT 44.3 % (42.0-52.0); HEMOGLOBIN 15.7 G/DL (14.2-18.0); MEAN CORPUSCULAR VOLUME 93 FL (80-99); PLATELET COUNT 366 K/UL (150-450); RED BLOOD COUNT 4.78 M/UL (4.70-6.10); RED CELL DISTRIBUTION WIDTH 11.1 % (11.6-14.8)
[2019-09-15 07:23] LABS: ALANINE AMINOTRANSFERASE 56 U/L (12-78); ALBUMIN/GLOBULIN RATIO 0.8 (1.0-2.7); ALKALINE PHOSPHATASE 59 U/L (46-116); ANION GAP 7 mmol/L (5-15); ASPARTATE AMINO TRANSFERASE 21 U/L (15-37); BILIRUBIN,TOTAL 0.2 MG/DL (0.2-1.0); BLOOD UREA NITROGEN 21 mg/dL (7-18); CALCIUM 8.7 MG/DL (8.5-10.1); CARBON DIOXIDE 30 MMOL/L (21-32); CHLORIDE 105 MMOL/L (98-107); CREATININE 0.9 MG/DL (0.55-1.30); PHOSPHORUS 4.3 MG/DL (2.5-4.9); POTASSIUM 4.3 MMOL/L (3.5-5.1); SODIUM 142 MMOL/L (136-145)
--- NOTE | 2019-09-15 07:39 | Pulmonology Progress Note ---
Assessment/Plan Assessment/Plan ASSESSMENT Acute bronchospasm Purulent bronchitis due to viral infection Complex right eyelid laceration Status post repair of complex laceration of the right upper and lower eyelid Drug dependency Hyperkalemia Transaminitis PLAN OF CARE MS floor O2 titrate to keep pulse ox above 92% pulmonary toilet with bronchodilator empiric abx, fup with cx IV steroids dc and changed to oral trial of theophylline antitussive as needed DVT prophylaxis s/p repair of laceration pain management monitor electrolytes and correct as needed trend LFT supportive care case discussed and evaluated by supervising physician Subjective Allergies: Coded Allergies: No Known Allergies (Unverified , 05/15/19) Subjective no fevers, leukocytosis with trend up, on steroids Objective Last 24 Hour Vital Signs Date Time Temp Pulse Resp B/P (MAP) Pulse Ox O2 Delivery O2 Flow Rate FiO2 09/15/19 04:07 98.3 95 18 132/84 (100) 96 09/15/19 00:00 97.9 90 18 130/90 (103) 96 09/14/19 21:00 Room Air 09/14/19 19:57 97.1 87 18 135/84 (101) 95 09/14/19 16:00 97.4 72 17 121/83 (96) 98 09/14/19 12:00 98.5 87 19 127/83 (98) 96 09/14/19 11:00 117/83 (94) 09/14/19 09:00 Room Air 09/14/19 09:00 88 117/83 09/14/19 08:00 97.9 90 18 133/98 (110) 95 Intake and Output 09/14/19 09/15/19 19:00 07:00 Intake Total 1800 ml 110.0 ml Balance 1800 ml 110.0 ml IV Total 110.0 ml Other 1800 ml # Voids 2 General Appearance: no acute distress HEENT: normocephalic, atraumatic, other - s.p repair laceration R eye Cardiovascular: normal rate Abdomen: normal bowel sounds, soft, non tender Extremities: no edema Neurologic/Psychiatric: alert, oriented x 3, responsive Musculoskeletal: normal muscle bulk Microbiology Date/Time Source Procedure Growth Status 09/13/19 15:35 Nasal Nares - Final Complete 09/13/19 15:35 Nasal Nares - Final Complete Laboratory Tests 09/15/19 05:50: White Blood Count 21.0H, Red Blood Count 4.78, Hemoglobin 15.7, Hematocrit 44.3 , Mean Corpuscular Volume 93, Mean Corpuscular Hemoglobin 32.9H, Mean Corpuscular Hemoglobin Concent 35.5, Red Cell Distribution Width 11.1L, Platelet Count 366, Mean Platelet Volume 6.5, Neutrophils (%) (Auto) , Lymphocytes (%) (Auto) , Monocytes (%) (Auto) , Eosinophils (%) (Auto) , Basophils (%) (Auto) , Neutrophils % (Manual) [Pending], Lymphocytes % (Manual) [Pending], Platelet Estimate [Pending], Platelet Morphology [Pending], Erythrocyte Sedimentation Rate [Pending], Sodium Level 142, Potassium Level 4.3 , Chloride Level 105, Carbon Dioxide Level 30, Anion Gap 7, Blood Urea Nitrogen 21H, Creatinine 0.9, Estimat Glomerular Filtration Rate > 60, Glucose Level 103 , Calcium Level 8.7, Phosphorus Level 4.3, Magnesium Level 2.6H, Total Bilirubin 0.2, Aspartate Amino Transf (AST/SGOT) 21, Alanine Aminotransferase ( ALT/SGPT) 56, Alkaline Phosphatase 59, C-Reactive Protein, Quantitative 2.2H, Total Protein 6.8, Albumin 3.0L, Globulin 3.8, Albumin/Globulin Ratio 0.8L Current Medications Medications (Trade) Dose Ordered Sig/William Route PRN Reason Start Time Stop Time Status Last Admin Dose Admin Albuterol/ Ipratropium (Albuterol/ Ipratropium) 3 ml EVERY 4 HOURS PRN HHN dyspnea 09/13/19 21:30 09/18/19 21:29 Amlodipine Besylate (Norvasc) 5 mg DAILY ORAL 09/14/19 09:00 10/14/19 08:59 Dextrose (Dextrose 50%) 25 ml Q30M PRN IV Hypoglycemia 09/13/19 21:30 10/13/19 21:29 Dextrose (Dextrose 50%) 50 ml Q30M PRN IV Hypoglycemia 09/13/19 21:30 10/13/19 21:29 Divalproex Sodium (Depakote) 1,000 mg DAILY ORAL 09/14/19 09:00 10/14/19 08:59 09/14/19 11:03 Fluoxetine HCl (PROzac) 60 mg DAILY ORAL 09/14/19 09:00 10/14/19 08:59 09/14/19 11:04 Heparin Sodium (Porcine) (Heparin 5000 units/ml) 5,000 units EVERY 12 HOURS SUBQ 09/14/19 09:00 10/14/19 08:59 09/14/19 21:01 Lorazepam (Ativan 2mg/ml 1ml) 0.5 mg Q4H PRN IV For Anxiety 09/13/19 21:30 09/20/19 21:29 Methylprednisolone Sodium Succinate (Solu-MEDROL) 60 mg DAILY IV 09/15/19 09:00 10/14/19 00:00 Mirtazapine (Remeron) 7.5 mg BEDTIME ORAL 09/14/19 21:00 10/14/19 20:59 09/14/19 21:00 Nitroglycerin (Ntg) 0.4 mg Q5M X 3 DOSES PRN SL Prn Chest Pain 09/13/19 21:30 10/13/19 21:29 Olanzapine (ZyPREXA) 40 mg DAILY ORAL 09/14/19 09:00 10/14/19 08:59 09/14/19 11:05 Ondansetron HCl (Zofran) 4 mg Q6H PRN IVP Nausea & Vomiting 09/13/19 21:30 10/13/19 21:29 Piperacillin Sod/ Tazobactam Sod 3.375 gm/Dextrose 110 ml @ 27.5 mls/hr EVERY 8 HOURS IVPB 09/13/19 22:00 09/20/19 21:59 09/15/19 05:35 Promethazine HCl/ Codeine (Phenergan with Codeine) 5 ml EVERY 6 HOURS PRN ORAL cough 09/13/19 21:30 10/13/19 21:29 Temazepam (Restoril) 15 mg HSPRN PRN ORAL Insomnia 09/13/19 21:30 09/20/19 21:29 Theophylline (Milton-Dur) 100 mg EVERY 12 HOURS ORAL 09/14/19 09:00 10/14/19 08:59 09/14/19 21:00 Viry Myers MAJOR ASSEMBLER Sep 15, 2019 07:39
[2019-09-15 07:46] VITALS: BP 120/80
--- NOTE | 2019-09-15 08:08 | NUR ---
NURSE NOTES: Received patient in bed awake. No SOB or acute distress. IV line intact and patent. HOB elevated. Bed locked in lowest position. Call light within reach. Will continue plan of care.
--- NOTE | 2019-09-15 08:17 | NUR ---
NURSE NOTES: Patient taking a shower. Instructed to keep IV site from getting wet. RN covered site with plastic wrap.
[2019-09-15] MEDS ORDERED: Solu-MEDROL 125mg Inj IV SCH (09:00)
[2019-09-15] MEDS: Depakote 500mg tab ORAL SCH (09:17)
[2019-09-15] MEDS: Theophylline ER 100mg ORAL SCH ×2 (09:17→21:21)
[2019-09-15] MEDS: Heparin 5000 units/ml inj SUBQ SCH ×2 (09:19→21:21)
[2019-09-15] MEDS: OLANZapine 10mg tab ORAL SCH (10:12)
[2019-09-15] MEDS: Promethazine/Codeine 5ml UD ORAL PRN (10:12)
[2019-09-15 12:00] VITALS: BP 120/76
--- NOTE | 2019-09-15 12:45 | NUR ---
NURSE NOTES: IV out, for reinsertion.
--- NOTE | 2019-09-15 13:30 | NUR ---
NURSE NOTES: IV reinserted by charge nurse to left AC using g22.
--- NOTE | 2019-09-15 14:22 | Internal Med Progress Note ---
Subjective Date of Service: Sep 15, 2019 Physician Name Miner,James Attending Physician Joey Tran MD Current Medications Medications (Trade) Dose Ordered Sig/William Route PRN Reason Start Time Stop Time Status Last Admin Dose Admin Albuterol/ Ipratropium (Albuterol/ Ipratropium) 3 ml EVERY 4 HOURS PRN HHN dyspnea 09/13/19 21:30 09/18/19 21:29 Amlodipine Besylate (Norvasc) 5 mg DAILY ORAL 09/14/19 09:00 10/14/19 08:59 09/15/19 09:16 Dextrose (Dextrose 50%) 25 ml Q30M PRN IV Hypoglycemia 09/13/19 21:30 10/13/19 21:29 Dextrose (Dextrose 50%) 50 ml Q30M PRN IV Hypoglycemia 09/13/19 21:30 10/13/19 21:29 Divalproex Sodium (Depakote) 1,000 mg DAILY ORAL 09/14/19 09:00 10/14/19 08:59 09/15/19 09:17 Fluoxetine HCl (PROzac) 60 mg DAILY ORAL 09/14/19 09:00 10/14/19 08:59 09/15/19 09:17 Heparin Sodium (Porcine) (Heparin 5000 units/ml) 5,000 units EVERY 12 HOURS SUBQ 09/14/19 09:00 10/14/19 08:59 09/15/19 09:19 Lorazepam (Ativan 2mg/ml 1ml) 0.5 mg Q4H PRN IV For Anxiety 09/13/19 21:30 09/20/19 21:29 Methylprednisolone Sodium Succinate (Solu-MEDROL) 60 mg DAILY IV 09/15/19 09:00 10/14/19 00:00 09/15/19 09:18 Mirtazapine (Remeron) 7.5 mg BEDTIME ORAL 09/14/19 21:00 10/14/19 20:59 09/14/19 21:00 Nitroglycerin (Ntg) 0.4 mg Q5M X 3 DOSES PRN SL Prn Chest Pain 09/13/19 21:30 10/13/19 21:29 Olanzapine (ZyPREXA) 40 mg DAILY ORAL 09/14/19 09:00 10/14/19 08:59 09/15/19 10:12 Ondansetron HCl (Zofran) 4 mg Q6H PRN IVP Nausea & Vomiting 09/13/19 21:30 10/13/19 21:29 Piperacillin Sod/ Tazobactam Sod 3.375 gm/Dextrose 110 ml @ 27.5 mls/hr EVERY 8 HOURS IVPB 09/13/19 22:00 09/20/19 21:59 09/15/19 13:23 Promethazine HCl/ Codeine (Phenergan with Codeine) 5 ml EVERY 6 HOURS PRN ORAL cough 09/13/19 21:30 10/13/19 21:29 09/15/19 10:12 Temazepam (Restoril) 15 mg HSPRN PRN ORAL Insomnia 09/13/19 21:30 09/20/19 21:29 Theophylline (Milton-Dur) 100 mg EVERY 12 HOURS ORAL 09/14/19 09:00 10/14/19 08:59 09/15/19 09:17 Allergies: Coded Allergies: No Known Allergies (Unverified , 05/15/19) ROS Limited/Unobtainable: No Constitutional: Reports: no symptoms HEENT: Reports: no symptoms Cardiovascular: Reports: no symptoms Respiratory: Reports: cough Gastrointestinal/Abdominal: Reports: no symptoms Genitourinary: Reports: no symptoms Neurologic/Psychiatric: Reports: no symptoms Subjective 44 YO M admitted with laceration to right eyelid. Now bronchitis. Cover for Int Med-DR Tran. Objective Last Vital Signs Date Time Temp Pulse Resp B/P (MAP) Pulse Ox O2 Delivery O2 Flow Rate FiO2 09/15/19 12:00 96.1 77 18 120/76 (91) 95 09/15/19 09:00 Room Air 09/13/19 21:30 1.0 21 Laboratory Tests Test 09/15/19 05:50 White Blood Count 21.0 K/UL (4.8-10.8) H Red Blood Count 4.78 M/UL (4.70-6.10) Hemoglobin 15.7 G/DL (14.2-18.0) Hematocrit 44.3 % (42.0-52.0) Mean Corpuscular Volume 93 FL (80-99) Mean Corpuscular Hemoglobin 32.9 PG (27.0-31.0) H Mean Corpuscular Hemoglobin Concent 35.5 G/DL (32.0-36.0) Red Cell Distribution Width 11.1 % (11.6-14.8) L Platelet Count 366 K/UL (150-450) Mean Platelet Volume 6.5 FL (6.5-10.1) Neutrophils (%) (Auto) % (45.0-75.0) Lymphocytes (%) (Auto) % (20.0-45.0) Monocytes (%) (Auto) % (1.0-10.0) Eosinophils (%) (Auto) % (0.0-3.0) Basophils (%) (Auto) % (0.0-2.0) Differential Total Cells Counted 100 Neutrophils % (Manual) 75 % (45-75) Lymphocytes % (Manual) 16 % (20-45) L Monocytes % (Manual) 9 % (1-10) Eosinophils % (Manual) 0 % (0-3) Basophils % (Manual) 0 % (0-2) Band Neutrophils 0 % (0-8) Platelet Estimate Adequate Platelet Morphology Normal Red Blood Cell Morphology Normal Erythrocyte Sedimentation Rate 19 MM/HR (0-15) H Sodium Level 142 MMOL/L (136-145) Potassium Level 4.3 MMOL/L (3.5-5.1) Chloride Level 105 MMOL/L (98-107) Carbon Dioxide Level 30 MMOL/L (21-32) Anion Gap 7 mmol/L (5-15) Blood Urea Nitrogen 21 mg/dL (7-18) H Creatinine 0.9 MG/DL (0.55-1.30) Estimat Glomerular Filtration Rate > 60 mL/min (>60) Glucose Level 103 MG/DL (74-106) Calcium Level 8.7 MG/DL (8.5-10.1) Phosphorus Level 4.3 MG/DL (2.5-4.9) Magnesium Level 2.6 MG/DL (1.8-2.4) H Total Bilirubin 0.2 MG/DL (0.2-1.0) Aspartate Amino Transf (AST/SGOT) 21 U/L (15-37) Alanine Aminotransferase (ALT/SGPT) 56 U/L (12-78) Alkaline Phosphatase 59 U/L (46-116) C-Reactive Protein, Quantitative 2.2 mg/dL (0.00-0.90) H Total Protein 6.8 G/DL (6.4-8.2) Albumin 3.0 G/DL (3.4-5.0) L Globulin 3.8 g/dL Albumin/Globulin Ratio 0.8 (1.0-2.7) L Microbiology Date/Time Source Procedure Growth Status 09/13/19 15:35 Nasal Nares - Final Complete 09/13/19 15:35 Nasal Nares - Final Complete Intake and Output 09/14/19 09/15/19 19:00 07:00 Intake Total 1800 ml 110.0 ml Balance 1800 ml 110.0 ml IV Total 110.0 ml Other 1800 ml # Voids 2 Objective PHYSICAL EXAMINATION: GENERAL: The patient is a well-developed and well-nourished male, in no apparent distress. HEENT: Eyes, pupils are equal and responsive to light and accommodation. Extraocular movements are intact. NECK: Supple without lymphadenopathy. CHEST: Lungs are clear to auscultation bilaterally without wheezes or rales. CARDIOVASCULAR: Regular rhythm and rate. S1, S2 are normal without murmurs, rubs, or gallops. ABDOMEN: Soft, nontender, and nondistended. Positive bowel sounds. No evidence of hepatosplenomegaly. Currently, no rebound or guarding noted. EXTREMITIES: Negative for clubbing, cyanosis, or edema. RECTAL/GENITAL: Not performed. NEUROLOGIC: Cranial nerves II through XII are grossly intact without focal deficits. Motor strength is 5/5 bilaterally. Deep tendon reflexes are 2+ plantar. Assessment/Plan Assessment/Plan ASSESSMENT: This is a 44-year-old male. 1. Laceration of the right upper and lower eyelid. 2. Contusion of the right eye. 3. Fatigue. 4. Bronchitis. 5. Hypertension. 6. Schizophrenia. TREATMENT: 1. Laceration of the right upper and lower eyelid. An Ophthalmology consultation has been obtained with Dr. Medardo Tinsley. The patient is status post laceration repair under local anesthesia. We will follow recommendations of Ophthalmology. 2. Contusion of the right eye. 3. Bronchitis. The patient has been placed empirically on intravenous Zosyn and Solu-Medrol. A Pulmonary consultation has been obtained with Dr. Ana Dorado. We will follow recommendations of Pulmonary. 4. Hypertension. Continue propranolol and amlodipine as above. 5. Schizophrenia. Continue Zyprexa, Remeron, Ativan, Prozac and Depakote as above. James Miner MD Sep 15, 2019 14:22
[2019-09-15 16:00] VITALS: BP 118/83
--- NOTE | 2019-09-15 19:35 | NUR ---
NURSE NOTES: Receive a report from Nidia RN. Round is done. Pt is asleep but easily aroused. No acute distress noted. Noted bruise and s/p laceration repair on right eye but denies pain. Vision intact. Call light within reach. Will continue to monitor.
--- NOTE | 2019-09-15 19:53 | NUR ---
HAND-OFF: Report given to Go.
[2019-09-15 20:00] VITALS: BP 127/85
[2019-09-16] VITALS: BP 140/91
[2019-09-16 04:00] VITALS: BP 146/83
--- NOTE | 2019-09-16 06:00 | NUR ---
NURSE NOTES: No acute distress noted. Ambulates unit. Provide fall precautions. Will continue to monitor.
[2019-09-16] MEDS: Piperacillin/Tazobactam 3.375 GM in D5W 110 ML IVPB SCH ×3 (06:10→19:54)
[2019-09-16 07:20] LABS: BASOPHILS % (AUTO) 0.5 % (0.0-2.0); EOSINOPHILS % (AUTO) 0.3 % (0.0-3.0); HEMATOCRIT 46.3 % (42.0-52.0); HEMOGLOBIN 15.8 G/DL (14.2-18.0); LYMPHOCYTES % (AUTO) 18.9 % (20.0-45.0); MEAN CORPUSCULAR VOLUME 94 FL (80-99); MONOCYTES % (AUTO) 7.3 % (1.0-10.0); PLATELET COUNT 356 K/UL (150-450); RED BLOOD COUNT 4.93 M/UL (4.70-6.10); WHITE BLOOD COUNT 16.2 K/UL (4.8-10.8)
--- NOTE | 2019-09-16 07:45 | NUR ---
HAND-OFF: Report given to ROSSI Moran.
--- NOTE | 2019-09-16 07:45 | NUR ---
nurse notes received patient in bed, patient awake, alert, oriented x4, no sign of distress, On going IV atb , denies pain or discomfort, on fall aspiration precaution, kept clean dry and comfortable needs met and anticipated, will continue to monitor patient condition sandeep coleman
--- NOTE | 2019-09-16 07:50 | Pulmonology Progress Note ---
Assessment/Plan Assessment/Plan ASSESSMENT Acute bronchospasm Purulent bronchitis due to viral infection Complex right eyelid laceration Status post repair of complex laceration of the right upper and lower eyelid Drug dependency Hyperkalemia Transaminitis PLAN OF CARE MS floor O2 titrate to keep pulse ox above 92% pulmonary toilet with bronchodilator empiric abx, fup with cx trend WBC, probably partly reactive due to steroids IV steroids , now changed to oral with daily tapering schedule trial of theophylline antitussive as needed DVT prophylaxis s/p repair of laceration pain management monitor electrolytes and correct as needed trend LFT supportive care case discussed and evaluated by supervising physician Subjective Allergies: Coded Allergies: No Known Allergies (Unverified , 05/15/19) Subjective no fevers, leukocytosis with trend down, on s oral steroids now Objective Last 24 Hour Vital Signs Date Time Temp Pulse Resp B/P (MAP) Pulse Ox O2 Delivery O2 Flow Rate FiO2 09/16/19 04:00 98.1 67 17 146/83 (104) 96 09/16/19 00:00 70 17 140/91 (107) 96 09/15/19 21:00 Room Air 09/15/19 20:00 97.2 76 17 127/85 (99) 96 09/15/19 16:00 98.0 67 18 118/83 (95) 97 09/15/19 12:00 96.1 77 18 120/76 (91) 95 09/15/19 09:16 61 120/80 09/15/19 09:00 Room Air Intake and Output 09/15/19 09/16/19 19:00 07:00 Intake Total 1137.5 ml Balance 1137.5 ml IV Total 137.5 ml Other 1000 ml # Voids 2 Objective General Appearance: no acute distress HEENT: normocephalic, atraumatic, other - s.p repair laceration R eye Cardiovascular: normal rate Abdomen: normal bowel sounds, soft, non tender Extremities: no edema Neurologic/Psychiatric: alert, oriented x 3, responsive Musculoskeletal: normal muscle bulk Microbiology Date/Time Source Procedure Growth Status 09/13/19 15:35 Nasal Nares - Final Complete 09/13/19 15:35 Nasal Nares - Final Complete Laboratory Tests 09/16/19 06:00: White Blood Count [Pending], Red Blood Count [Pending], Hemoglobin [Pending], Hematocrit [Pending], Mean Corpuscular Volume [Pending], Mean Corpuscular Hemoglobin [Pending], Mean Corpuscular Hemoglobin Concent [Pending], Red Cell Distribution Width [Pending], Platelet Count [Pending], Mean Platelet Volume [ Pending], Neutrophils (%) (Auto) [Pending], Lymphocytes (%) (Auto) [Pending], Monocytes (%) (Auto) [Pending], Eosinophils (%) (Auto) [Pending], Basophils (%) (Auto) [Pending], Sodium Level [Pending], Potassium Level [Pending], Chloride Level [Pending], Carbon Dioxide Level [Pending], Blood Urea Nitrogen [Pending], Creatinine [Pending], Estimat Glomerular Filtration Rate [Pending], Glucose Level [Pending], Calcium Level [Pending] Current Medications Medications (Trade) Dose Ordered Sig/William Route PRN Reason Start Time Stop Time Status Last Admin Dose Admin Albuterol/ Ipratropium (Albuterol/ Ipratropium) 3 ml EVERY 4 HOURS PRN HHN dyspnea 09/13/19 21:30 09/18/19 21:29 Amlodipine Besylate (Norvasc) 5 mg DAILY ORAL 09/14/19 09:00 10/14/19 08:59 09/15/19 09:16 Dextrose (Dextrose 50%) 25 ml Q30M PRN IV Hypoglycemia 09/13/19 21:30 10/13/19 21:29 Dextrose (Dextrose 50%) 50 ml Q30M PRN IV Hypoglycemia 09/13/19 21:30 10/13/19 21:29 Divalproex Sodium (Depakote) 1,000 mg DAILY ORAL 09/14/19 09:00 10/14/19 08:59 09/15/19 09:17 Fluoxetine HCl (PROzac) 60 mg DAILY ORAL 09/14/19 09:00 10/14/19 08:59 09/15/19 09:17 Heparin Sodium (Porcine) (Heparin 5000 units/ml) 5,000 units EVERY 12 HOURS SUBQ 09/14/19 09:00 10/14/19 08:59 09/15/19 21:21 Lorazepam (Ativan 2mg/ml 1ml) 0.5 mg Q4H PRN IV For Anxiety 09/13/19 21:30 09/20/19 21:29 Mirtazapine (Remeron) 7.5 mg BEDTIME ORAL 09/14/19 21:00 10/14/19 20:59 09/15/19 21:21 Nitroglycerin (Ntg) 0.4 mg Q5M X 3 DOSES PRN SL Prn Chest Pain 09/13/19 21:30 10/13/19 21:29 Olanzapine (ZyPREXA) 40 mg DAILY ORAL 09/14/19 09:00 10/14/19 08:59 09/15/19 10:12 Ondansetron HCl (Zofran) 4 mg Q6H PRN IVP Nausea & Vomiting 09/13/19 21:30 10/13/19 21:29 Piperacillin Sod/ Tazobactam Sod 3.375 gm/Dextrose 110 ml @ 27.5 mls/hr EVERY 8 HOURS IVPB 09/13/19 22:00 09/20/19 21:59 09/16/19 06:10 Prednisone (predniSONE) 60 mg Taper DAILY ORAL 09/16/19 09:00 09/22/19 08:59 Promethazine HCl/ Codeine (Phenergan with Codeine) 5 ml EVERY 6 HOURS PRN ORAL cough 09/13/19 21:30 10/13/19 21:29 09/15/19 10:12 Temazepam (Restoril) 15 mg HSPRN PRN ORAL Insomnia 09/13/19 21:30 09/20/19 21:29 Theophylline (Milton-Dur) 100 mg EVERY 12 HOURS ORAL 09/14/19 09:00 10/14/19 08:59 09/15/19 21:21 Viry Myers CLOTH WEIGHER Sep 16, 2019 07:50
[2019-09-16 07:56] LABS: ANION GAP 6 mmol/L (5-15); BLOOD UREA NITROGEN 23 mg/dL (7-18); CALCIUM 8.9 MG/DL (8.5-10.1); CARBON DIOXIDE 33 MMOL/L (21-32); CHLORIDE 105 MMOL/L (98-107); POTASSIUM 4.1 MMOL/L (3.5-5.1); SODIUM 144 MMOL/L (136-145)
[2019-09-16 08:06] VITALS: BP 135/75
[2019-09-16] MEDS: OLANZapine 10mg tab ORAL SCH (08:26)
[2019-09-16] MEDS: Theophylline ER 100mg ORAL SCH ×2 (08:26→19:54)
[2019-09-16] MEDS: Depakote 500mg tab ORAL SCH (08:28)
[2019-09-16] MEDS: Heparin 5000 units/ml inj SUBQ SCH ×2 (08:33→19:55)
[2019-09-16] MEDS: Promethazine/Codeine 5ml UD ORAL PRN (08:42)
[2019-09-16 12:00] VITALS: BP 121/83
--- NOTE | 2019-09-16 13:21 | Internal Med Progress Note ---
Subjective Date of Service: Sep 16, 2019 Physician Name James Miner Attending Physician Joey Tran MD Current Medications Medications (Trade) Dose Ordered Sig/William Route PRN Reason Start Time Stop Time Status Last Admin Dose Admin Albuterol/ Ipratropium (Albuterol/ Ipratropium) 3 ml EVERY 4 HOURS PRN HHN dyspnea 09/13/19 21:30 09/18/19 21:29 Amlodipine Besylate (Norvasc) 5 mg DAILY ORAL 09/14/19 09:00 10/14/19 08:59 09/16/19 08:27 Dextrose (Dextrose 50%) 25 ml Q30M PRN IV Hypoglycemia 09/13/19 21:30 10/13/19 21:29 Dextrose (Dextrose 50%) 50 ml Q30M PRN IV Hypoglycemia 09/13/19 21:30 10/13/19 21:29 Divalproex Sodium (Depakote) 1,000 mg DAILY ORAL 09/14/19 09:00 10/14/19 08:59 09/16/19 08:28 Fluoxetine HCl (PROzac) 60 mg DAILY ORAL 09/14/19 09:00 10/14/19 08:59 09/16/19 08:28 Heparin Sodium (Porcine) (Heparin 5000 units/ml) 5,000 units EVERY 12 HOURS SUBQ 09/14/19 09:00 10/14/19 08:59 09/16/19 08:33 Lorazepam (Ativan 2mg/ml 1ml) 0.5 mg Q4H PRN IV For Anxiety 09/13/19 21:30 09/20/19 21:29 Mirtazapine (Remeron) 7.5 mg BEDTIME ORAL 09/14/19 21:00 10/14/19 20:59 09/15/19 21:21 Nitroglycerin (Ntg) 0.4 mg Q5M X 3 DOSES PRN SL Prn Chest Pain 09/13/19 21:30 10/13/19 21:29 Olanzapine (ZyPREXA) 40 mg DAILY ORAL 09/14/19 09:00 10/14/19 08:59 09/16/19 08:26 Ondansetron HCl (Zofran) 4 mg Q6H PRN IVP Nausea & Vomiting 09/13/19 21:30 10/13/19 21:29 Piperacillin Sod/ Tazobactam Sod 3.375 gm/Dextrose 110 ml @ 27.5 mls/hr EVERY 8 HOURS IVPB 09/13/19 22:00 09/20/19 21:59 09/16/19 13:02 Prednisone (predniSONE) 60 mg Taper DAILY ORAL 09/16/19 09:00 09/22/19 08:59 09/16/19 08:26 Promethazine HCl/ Codeine (Phenergan with Codeine) 5 ml EVERY 6 HOURS PRN ORAL cough 09/13/19 21:30 10/13/19 21:29 09/16/19 08:42 Temazepam (Restoril) 15 mg HSPRN PRN ORAL Insomnia 09/13/19 21:30 09/20/19 21:29 Theophylline (Milton-Dur) 100 mg EVERY 12 HOURS ORAL 09/14/19 09:00 10/14/19 08:59 09/16/19 08:26 Allergies: Coded Allergies: No Known Allergies (Unverified , 05/15/19) ROS Limited/Unobtainable: No Constitutional: Reports: no symptoms HEENT: Reports: no symptoms Cardiovascular: Reports: no symptoms Respiratory: Reports: no symptoms Gastrointestinal/Abdominal: Reports: no symptoms Genitourinary: Reports: no symptoms Neurologic/Psychiatric: Reports: no symptoms Subjective 44 YO M admitted with laceration to right eyelid. Now bronchitis. Cover for Int Med-DR Tran. Objective Last Vital Signs Date Time Temp Pulse Resp B/P (MAP) Pulse Ox O2 Delivery O2 Flow Rate FiO2 09/16/19 12:00 97.0 83 18 121/83 (96) 95 09/16/19 08:33 Room Air 09/13/19 21:30 1.0 21 Laboratory Tests Test 09/16/19 06:00 White Blood Count 16.2 K/UL (4.8-10.8) H Red Blood Count 4.93 M/UL (4.70-6.10) Hemoglobin 15.8 G/DL (14.2-18.0) Hematocrit 46.3 % (42.0-52.0) Mean Corpuscular Volume 94 FL (80-99) Mean Corpuscular Hemoglobin 32.0 PG (27.0-31.0) H Mean Corpuscular Hemoglobin Concent 34.1 G/DL (32.0-36.0) Red Cell Distribution Width 11.0 % (11.6-14.8) L Platelet Count 356 K/UL (150-450) Mean Platelet Volume 6.3 FL (6.5-10.1) L Neutrophils (%) (Auto) 73.0 % (45.0-75.0) Lymphocytes (%) (Auto) 18.9 % (20.0-45.0) L Monocytes (%) (Auto) 7.3 % (1.0-10.0) Eosinophils (%) (Auto) 0.3 % (0.0-3.0) Basophils (%) (Auto) 0.5 % (0.0-2.0) Sodium Level 144 MMOL/L (136-145) Potassium Level 4.1 MMOL/L (3.5-5.1) Chloride Level 105 MMOL/L (98-107) Carbon Dioxide Level 33 MMOL/L (21-32) H Anion Gap 6 mmol/L (5-15) Blood Urea Nitrogen 23 mg/dL (7-18) H Creatinine 1.0 MG/DL (0.55-1.30) Estimat Glomerular Filtration Rate > 60 mL/min (>60) Glucose Level 74 MG/DL (74-106) Calcium Level 8.9 MG/DL (8.5-10.1) Microbiology Date/Time Source Procedure Growth Status 09/13/19 15:35 Nasal Nares - Final Complete 09/13/19 15:35 Nasal Nares - Final Complete Intake and Output 09/15/19 09/16/19 19:00 07:00 Intake Total 1137.5 ml 27.5 ml Balance 1137.5 ml 27.5 ml IV Total 137.5 ml 27.5 ml Other 1000 ml # Voids 2 Objective PHYSICAL EXAMINATION: GENERAL: The patient is a well-developed and well-nourished male, in no apparent distress. HEENT: Eyes, pupils are equal and responsive to light and accommodation. Extraocular movements are intact. NECK: Supple without lymphadenopathy. CHEST: Lungs are clear to auscultation bilaterally without wheezes or rales. CARDIOVASCULAR: Regular rhythm and rate. S1, S2 are normal without murmurs, rubs, or gallops. ABDOMEN: Soft, nontender, and nondistended. Positive bowel sounds. No evidence of hepatosplenomegaly. Currently, no rebound or guarding noted. EXTREMITIES: Negative for clubbing, cyanosis, or edema. RECTAL/GENITAL: Not performed. NEUROLOGIC: Cranial nerves II through XII are grossly intact without focal deficits. Motor strength is 5/5 bilaterally. Deep tendon reflexes are 2+ plantar. Assessment/Plan Assessment/Plan ASSESSMENT: This is a 44-year-old male. 1. Laceration of the right upper and lower eyelid. 2. Contusion of the right eye. 3. Fatigue. 4. Bronchitis. 5. Hypertension. 6. Schizophrenia. TREATMENT: 1. Laceration of the right upper and lower eyelid. An Ophthalmology consultation has been obtained with Dr. Medardo Tinsley. The patient is status post laceration repair under local anesthesia. We will follow recommendations of Ophthalmology. 2. Contusion of the right eye. 3. Bronchitis. The patient has been placed empirically on intravenous Zosyn. Oral prednisone taper per Pulmonary=Dr. Ana Dorado. We will follow recommendations of Pulmonary. 4. Hypertension. Continue propranolol and amlodipine as above. 5. Schizophrenia. Continue Zyprexa, Remeron, Ativan, Prozac and Depakote as above. 6. D/W patient and mother at bedside 7. Discharge plan: [facility] James Miner MD Sep 16, 2019 13:21
[2019-09-16 15:52] VITALS: BP 127/87
--- NOTE | 2019-09-16 19:25 | NUR ---
HAND-OFF: Report given to ROSSI kidd Resting comfortably in bed, no sign of distress rossi coleman.
[2019-09-16 19:44] VITALS: BP 129/84
--- NOTE | 2019-09-16 20:15 | NUR ---
NURSE NOTES: received patient awake, alert, verbal, ambulatory, resting in bed, watching television.
[2019-09-17] MEDS: Piperacillin/Tazobactam 3.375 GM in D5W 110 ML IVPB SCH ×3 (03:52→20:29)
[2019-09-17 04:07] VITALS: BP 124/80
[2019-09-17 06:39] LABS: BASOPHILS % (AUTO) 0.9 % (0.0-2.0); EOSINOPHILS % (AUTO) 0.7 % (0.0-3.0); HEMATOCRIT 43.8 % (42.0-52.0); HEMOGLOBIN 15.4 G/DL (14.2-18.0); LYMPHOCYTES % (AUTO) 20.5 % (20.0-45.0); MEAN CORPUSCULAR VOLUME 93 FL (80-99); MONOCYTES % (AUTO) 9.8 % (1.0-10.0); PLATELET COUNT 347 K/UL (150-450); RED BLOOD COUNT 4.72 M/UL (4.70-6.10); RED CELL DISTRIBUTION WIDTH 11.1 % (11.6-14.8); WHITE BLOOD COUNT 14.5 K/UL (4.8-10.8)
[2019-09-17 07:17] LABS: ANION GAP 11 mmol/L (5-15); BLOOD UREA NITROGEN 23 mg/dL (7-18); CALCIUM 8.7 MG/DL (8.5-10.1); CARBON DIOXIDE 28 MMOL/L (21-32); CHLORIDE 106 MMOL/L (98-107); CREATININE 1.1 MG/DL (0.55-1.30); POTASSIUM 4.1 MMOL/L (3.5-5.1); SODIUM 144 MMOL/L (136-145)
--- NOTE | 2019-09-17 07:27 | NUR ---
HAND-OFF: Report given to Valdez Lopez RN.
--- NOTE | 2019-09-17 07:59 | NUR ---
NURSE NOTES: Receive in bed, AAO x4. RA. No c/o of pain/distress. IV on LAC 22g noted. Side rail x2. Bed in the lowest and locked. Call light within reach. Will continue to monitor
[2019-09-17 08:00] VITALS: BP 126/87
[2019-09-17] MEDS: Depakote 500mg tab ORAL SCH (08:57)
[2019-09-17] MEDS: Theophylline ER 100mg ORAL SCH ×2 (08:57→20:28)
[2019-09-17] MEDS: Heparin 5000 units/ml inj SUBQ SCH ×2 (09:00→20:29)
[2019-09-17] MEDS: OLANZapine 10mg tab ORAL SCH (09:44)
[2019-09-17 12:00] VITALS: BP 128/82
--- NOTE | 2019-09-17 13:01 | Pulmonology Progress Note ---
Assessment/Plan Problems: (1) Purulent bronchitis (2) Acute bronchospasm due to viral infection (3) Facial laceration (4) Drug dependency Assessment/Plan improving wbc still high no sputum yet will get ID evaluation check wbc in am less short of breath less cough Subjective ROS Limited/Unobtainable: No Interval Events: doing much better Allergies: Coded Allergies: No Known Allergies (Unverified , 05/15/19) Objective Last 24 Hour Vital Signs Date Time Temp Pulse Resp B/P (MAP) Pulse Ox O2 Delivery O2 Flow Rate FiO2 09/17/19 12:00 97.1 83 20 128/82 (97) 95 09/17/19 09:00 Room Air 09/17/19 08:58 78 126/87 09/17/19 08:00 97.3 78 20 126/87 (100) 95 09/17/19 07:56 87 18 97 Room Air 21 09/17/19 04:07 98.0 81 18 124/80 (95) 92 09/16/19 20:27 Room Air 09/16/19 20:11 88 18 97 Room Air 21 09/16/19 19:44 97.9 81 18 129/84 (99) 95 09/16/19 15:52 97.5 76 18 127/87 (100) 97 Intake and Output 09/16/19 09/17/19 19:00 07:00 Intake Total 1392.5 ml 612.5 ml Balance 1392.5 ml 612.5 ml Intake Oral 420 ml IV Total 192.5 ml 192.5 ml Other 1200 ml # Voids 3 General Appearance: WD/WN HEENT: normocephalic, atraumatic Respiratory/Chest: chest wall non-tender, lungs clear Cardiovascular: normal peripheral pulses, normal rate, regular rhythm Abdomen: normal bowel sounds, soft, non tender Genitourinary: normal external genitalia Extremities: no clubbing Skin: no rash 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 Laboratory Tests 09/17/19 06:15: White Blood Count 14.5H, Red Blood Count 4.72, Hemoglobin 15.4, Hematocrit 43.8 , Mean Corpuscular Volume 93, Mean Corpuscular Hemoglobin 32.6H, Mean Corpuscular Hemoglobin Concent 35.2, Red Cell Distribution Width 11.1L, Platelet Count 347, Mean Platelet Volume 6.3L, Neutrophils (%) (Auto) 68.0, Lymphocytes (%) (Auto) 20.5, Monocytes (%) (Auto) 9.8, Eosinophils (%) (Auto) 0.7, Basophils (%) (Auto) 0.9, Sodium Level 144, Potassium Level 4.1, Chloride Level 106, Carbon Dioxide Level 28, Anion Gap 11, Blood Urea Nitrogen 23H, Creatinine 1.1, Estimat Glomerular Filtration Rate > 60, Glucose Level 106, Calcium Level 8.7 Current Medications Medications (Trade) Dose Ordered Sig/William Route PRN Reason Start Time Stop Time Status Last Admin Dose Admin Albuterol/ Ipratropium (Albuterol/ Ipratropium) 3 ml EVERY 4 HOURS PRN HHN dyspnea 09/13/19 21:30 09/18/19 21:29 Amlodipine Besylate (Norvasc) 5 mg DAILY ORAL 09/14/19 09:00 10/14/19 08:59 09/17/19 08:58 Dextrose (Dextrose 50%) 25 ml Q30M PRN IV Hypoglycemia 09/13/19 21:30 10/13/19 21:29 Dextrose (Dextrose 50%) 50 ml Q30M PRN IV Hypoglycemia 09/13/19 21:30 10/13/19 21:29 Divalproex Sodium (Depakote) 1,000 mg DAILY ORAL 09/14/19 09:00 10/14/19 08:59 09/17/19 08:57 Fluoxetine HCl (PROzac) 60 mg DAILY ORAL 09/14/19 09:00 10/14/19 08:59 09/17/19 08:58 Heparin Sodium (Porcine) (Heparin 5000 units/ml) 5,000 units EVERY 12 HOURS SUBQ 09/14/19 09:00 10/14/19 08:59 09/17/19 09:00 Lorazepam (Ativan 2mg/ml 1ml) 0.5 mg Q4H PRN IV For Anxiety 09/13/19 21:30 09/20/19 21:29 Mirtazapine (Remeron) 7.5 mg BEDTIME ORAL 09/14/19 21:00 10/14/19 20:59 09/16/19 19:54 Nitroglycerin (Ntg) 0.4 mg Q5M X 3 DOSES PRN SL Prn Chest Pain 09/13/19 21:30 10/13/19 21:29 Olanzapine (ZyPREXA) 40 mg DAILY ORAL 09/14/19 09:00 10/14/19 08:59 09/17/19 09:44 Ondansetron HCl (Zofran) 4 mg Q6H PRN IVP Nausea & Vomiting 09/13/19 21:30 10/13/19 21:29 Piperacillin Sod/ Tazobactam Sod 3.375 gm/Dextrose 110 ml @ 27.5 mls/hr EVERY 8 HOURS IVPB 09/13/19 22:00 09/20/19 21:59 09/17/19 03:52 Prednisone (predniSONE) 50 mg Taper DAILY ORAL 09/16/19 09:00 09/22/19 08:59 09/17/19 08:58 Promethazine HCl/ Codeine (Phenergan with Codeine) 5 ml EVERY 6 HOURS PRN ORAL cough 09/13/19 21:30 10/13/19 21:29 09/16/19 08:42 Temazepam (Restoril) 15 mg HSPRN PRN ORAL Insomnia 09/13/19 21:30 09/20/19 21:29 Theophylline (Milton-Dur) 100 mg EVERY 12 HOURS ORAL 09/14/19 09:00 10/14/19 08:59 09/17/19 08:57 Ana Dorado MD Sep 17, 2019 13:01
--- NOTE | 2019-09-17 15:49 | Infectious Diseases Prog Note ---
Subjective Allergies: Coded Allergies: No Known Allergies (Unverified , 05/15/19) Subjective # Dictatated Objective Vital Signs Last 24 Hour Vital Signs Date Time Temp Pulse Resp B/P (MAP) Pulse Ox O2 Delivery O2 Flow Rate FiO2 09/17/19 12:00 97.1 83 20 128/82 (97) 95 09/17/19 09:00 Room Air 09/17/19 08:58 78 126/87 09/17/19 08:00 97.3 78 20 126/87 (100) 95 09/17/19 07:56 87 18 97 Room Air 21 09/17/19 04:07 98.0 81 18 124/80 (95) 92 09/16/19 20:27 Room Air 09/16/19 20:11 88 18 97 Room Air 21 09/16/19 19:44 97.9 81 18 129/84 (99) 95 09/16/19 15:52 97.5 76 18 127/87 (100) 97 Height (Feet): 6 Height (Inches): 3.00 Weight (Pounds): 238 Laboratory Tests Test 09/17/19 06:15 White Blood Count 14.5 K/UL (4.8-10.8) H Red Blood Count 4.72 M/UL (4.70-6.10) Hemoglobin 15.4 G/DL (14.2-18.0) Hematocrit 43.8 % (42.0-52.0) Mean Corpuscular Volume 93 FL (80-99) Mean Corpuscular Hemoglobin 32.6 PG (27.0-31.0) H Mean Corpuscular Hemoglobin Concent 35.2 G/DL (32.0-36.0) Red Cell Distribution Width 11.1 % (11.6-14.8) L Platelet Count 347 K/UL (150-450) Mean Platelet Volume 6.3 FL (6.5-10.1) L Neutrophils (%) (Auto) 68.0 % (45.0-75.0) Lymphocytes (%) (Auto) 20.5 % (20.0-45.0) Monocytes (%) (Auto) 9.8 % (1.0-10.0) Eosinophils (%) (Auto) 0.7 % (0.0-3.0) Basophils (%) (Auto) 0.9 % (0.0-2.0) Sodium Level 144 MMOL/L (136-145) Potassium Level 4.1 MMOL/L (3.5-5.1) Chloride Level 106 MMOL/L (98-107) Carbon Dioxide Level 28 MMOL/L (21-32) Anion Gap 11 mmol/L (5-15) Blood Urea Nitrogen 23 mg/dL (7-18) H Creatinine 1.1 MG/DL (0.55-1.30) Estimat Glomerular Filtration Rate > 60 mL/min (>60) Glucose Level 106 MG/DL (74-106) Calcium Level 8.7 MG/DL (8.5-10.1) Current Medications Medications (Trade) Dose Ordered Sig/William Route PRN Reason Start Time Stop Time Status Last Admin Dose Admin Albuterol/ Ipratropium (Albuterol/ Ipratropium) 3 ml EVERY 4 HOURS PRN HHN dyspnea 09/13/19 21:30 09/18/19 21:29 Amlodipine Besylate (Norvasc) 5 mg DAILY ORAL 09/14/19 09:00 10/14/19 08:59 09/17/19 08:58 Dextrose (Dextrose 50%) 25 ml Q30M PRN IV Hypoglycemia 09/13/19 21:30 10/13/19 21:29 Dextrose (Dextrose 50%) 50 ml Q30M PRN IV Hypoglycemia 09/13/19 21:30 10/13/19 21:29 Divalproex Sodium (Depakote) 1,000 mg DAILY ORAL 09/14/19 09:00 10/14/19 08:59 09/17/19 08:57 Fluoxetine HCl (PROzac) 60 mg DAILY ORAL 09/14/19 09:00 10/14/19 08:59 09/17/19 08:58 Heparin Sodium (Porcine) (Heparin 5000 units/ml) 5,000 units EVERY 12 HOURS SUBQ 09/14/19 09:00 10/14/19 08:59 09/17/19 09:00 Lorazepam (Ativan 2mg/ml 1ml) 0.5 mg Q4H PRN IV For Anxiety 09/13/19 21:30 09/20/19 21:29 Mirtazapine (Remeron) 7.5 mg BEDTIME ORAL 09/14/19 21:00 10/14/19 20:59 09/16/19 19:54 Nitroglycerin (Ntg) 0.4 mg Q5M X 3 DOSES PRN SL Prn Chest Pain 09/13/19 21:30 10/13/19 21:29 Olanzapine (ZyPREXA) 30 mg BEDTIME ORAL 09/17/19 21:00 10/17/19 20:59 Ondansetron HCl (Zofran) 4 mg Q6H PRN IVP Nausea & Vomiting 09/13/19 21:30 10/13/19 21:29 Piperacillin Sod/ Tazobactam Sod 3.375 gm/Dextrose 110 ml @ 27.5 mls/hr EVERY 8 HOURS IVPB 09/13/19 22:00 09/20/19 21:59 09/17/19 13:53 Promethazine HCl/ Codeine (Phenergan with Codeine) 5 ml EVERY 6 HOURS PRN ORAL cough 09/13/19 21:30 10/13/19 21:29 09/16/19 08:42 Temazepam (Restoril) 15 mg HSPRN PRN ORAL Insomnia 09/13/19 21:30 09/20/19 21:29 Theophylline (Milton-Dur) 100 mg EVERY 12 HOURS ORAL 09/14/19 09:00 10/14/19 08:59 09/17/19 08:57 Junito Jorge MD Sep 17, 2019 15:49
[2019-09-17 16:00] VITALS: BP 125/83
--- NOTE | 2019-09-17 18:30 | Consultation ---
DATE OF CONSULTATION: 09/17/2019 INFECTIOUS DISEASES CONSULTATION CONSULTING PHYSICIAN: Junito Jorge M.D. REFERRING PHYSICIAN: Ana Dorado M.D. REASON FOR CONSULTATION: Evaluation of the patient for pneumonia and antibiotic management. HISTORY OF PRESENT ILLNESS: The patient is a 44-year-old male with multiple medical problems listed below, who was admitted to this medical center for cough and shortness of breath. The patient also has history of recent fall and the laceration of the right eye. The patient has been started on intravenous Zosyn. Infectious diseases consultation has been requested for further evaluation of the patient and antibiotic management. PAST MEDICAL HISTORY: Significant for hypertension and schizophrenia. PAST SURGICAL HISTORY: Unremarkable. MEDICATIONS: IV Zosyn. ALLERGIES: No known drug allergies. SOCIAL HISTORY: The patient is lives at [facility]. REVIEW OF SYSTEMS: The patient is a poor historian. PHYSICAL EXAMINATION: VITAL SIGNS: Temperature 97.3, pulse 86, respiratory rate 18, and blood pressure 128/82. HEENT: No pale conjunctivae. No icterus. NECK: No lymphadenopathy. CHEST: Mildly decreased breathing sounds at the bases. HEART: S1 and S2. ABDOMEN: Soft. EXTREMITIES: No cyanosis at this time. LABORATORY DATA: White blood cells 14, hemoglobin 15, platelets 247. UA unremarkable. BUN 23 and creatinine 1.3. ALT, AST, alkaline phosphatase unremarkable. Head CT, soft tissue gas seen in the preseptal right orbit. Chest x-ray no acute process. ASSESSMENT: The patient is a 44-year-old male with: 1. Cough/bronchitis. 2. Right eye laceration (no evidence of cellulitis or abscess). 3. Afebrile. 4. Mild leukocytosis. PLAN: 1. Continue patient on IV Zosyn day number #5. 2. We will send cultures( blood urine, sputum). 3. Monitor CBC. 4. Monitor BMP. 5. Monitor the patient's clinical course and laboratories and based on those, we will do further recommendations. Thank you, Dr. Dorado and Dr. Miner, for allowing me to participate in the care of this patient. I will follow the patient with you during this hospitalization. Junito Jorge M.D. DR: Akosua JOB#: [id number] CC:
--- NOTE | 2019-09-17 19:18 | NUR ---
HAND-OFF: Report given to ROSSI Paz.
--- NOTE | 2019-09-17 19:28 | Internal Med Progress Note ---
Subjective Date of Service: Sep 17, 2019 Physician Name IsidraJames Attending Physician Joey Tran MD Current Medications Medications (Trade) Dose Ordered Sig/William Route PRN Reason Start Time Stop Time Status Last Admin Dose Admin Albuterol/ Ipratropium (Albuterol/ Ipratropium) 3 ml EVERY 4 HOURS PRN HHN dyspnea 09/13/19 21:30 09/18/19 21:29 Amlodipine Besylate (Norvasc) 5 mg DAILY ORAL 09/14/19 09:00 10/14/19 08:59 09/17/19 08:58 Dextrose (Dextrose 50%) 25 ml Q30M PRN IV Hypoglycemia 09/13/19 21:30 10/13/19 21:29 Dextrose (Dextrose 50%) 50 ml Q30M PRN IV Hypoglycemia 09/13/19 21:30 10/13/19 21:29 Divalproex Sodium (Depakote) 1,000 mg DAILY ORAL 09/14/19 09:00 10/14/19 08:59 09/17/19 08:57 Fluoxetine HCl (PROzac) 60 mg DAILY ORAL 09/14/19 09:00 10/14/19 08:59 09/17/19 08:58 Heparin Sodium (Porcine) (Heparin 5000 units/ml) 5,000 units EVERY 12 HOURS SUBQ 09/14/19 09:00 10/14/19 08:59 09/17/19 09:00 Lorazepam (Ativan 2mg/ml 1ml) 0.5 mg Q4H PRN IV For Anxiety 09/13/19 21:30 09/20/19 21:29 Mirtazapine (Remeron) 7.5 mg BEDTIME ORAL 09/14/19 21:00 10/14/19 20:59 09/16/19 19:54 Nitroglycerin (Ntg) 0.4 mg Q5M X 3 DOSES PRN SL Prn Chest Pain 09/13/19 21:30 10/13/19 21:29 Olanzapine (ZyPREXA) 30 mg BEDTIME ORAL 09/17/19 21:00 10/17/19 20:59 Ondansetron HCl (Zofran) 4 mg Q6H PRN IVP Nausea & Vomiting 09/13/19 21:30 10/13/19 21:29 Piperacillin Sod/ Tazobactam Sod 3.375 gm/Dextrose 110 ml @ 27.5 mls/hr EVERY 8 HOURS IVPB 09/13/19 22:00 09/20/19 21:59 09/17/19 13:53 Promethazine HCl/ Codeine (Phenergan with Codeine) 5 ml EVERY 6 HOURS PRN ORAL cough 09/13/19 21:30 10/13/19 21:29 09/16/19 08:42 Temazepam (Restoril) 15 mg HSPRN PRN ORAL Insomnia 09/13/19 21:30 09/20/19 21:29 Theophylline (Milton-Dur) 100 mg EVERY 12 HOURS ORAL 09/14/19 09:00 10/14/19 08:59 09/17/19 08:57 Allergies: Coded Allergies: No Known Allergies (Unverified , 05/15/19) ROS Limited/Unobtainable: No Constitutional: Reports: no symptoms HEENT: Reports: no symptoms Cardiovascular: Reports: no symptoms Respiratory: Reports: no symptoms Gastrointestinal/Abdominal: Reports: no symptoms Genitourinary: Reports: no symptoms Neurologic/Psychiatric: Reports: no symptoms Subjective 44 YO M admitted with laceration to right eyelid. Now bronchitis. Cover for Int Med-DR Tran. Objective Last Vital Signs Date Time Temp Pulse Resp B/P (MAP) Pulse Ox O2 Delivery O2 Flow Rate FiO2 09/17/19 16:00 97.7 73 20 125/83 (97) 94 09/17/19 09:00 Room Air 09/17/19 07:56 21 09/13/19 21:30 1.0 Laboratory Tests Test 09/17/19 06:15 White Blood Count 14.5 K/UL (4.8-10.8) H Red Blood Count 4.72 M/UL (4.70-6.10) Hemoglobin 15.4 G/DL (14.2-18.0) Hematocrit 43.8 % (42.0-52.0) Mean Corpuscular Volume 93 FL (80-99) Mean Corpuscular Hemoglobin 32.6 PG (27.0-31.0) H Mean Corpuscular Hemoglobin Concent 35.2 G/DL (32.0-36.0) Red Cell Distribution Width 11.1 % (11.6-14.8) L Platelet Count 347 K/UL (150-450) Mean Platelet Volume 6.3 FL (6.5-10.1) L Neutrophils (%) (Auto) 68.0 % (45.0-75.0) Lymphocytes (%) (Auto) 20.5 % (20.0-45.0) Monocytes (%) (Auto) 9.8 % (1.0-10.0) Eosinophils (%) (Auto) 0.7 % (0.0-3.0) Basophils (%) (Auto) 0.9 % (0.0-2.0) Sodium Level 144 MMOL/L (136-145) Potassium Level 4.1 MMOL/L (3.5-5.1) Chloride Level 106 MMOL/L (98-107) Carbon Dioxide Level 28 MMOL/L (21-32) Anion Gap 11 mmol/L (5-15) Blood Urea Nitrogen 23 mg/dL (7-18) H Creatinine 1.1 MG/DL (0.55-1.30) Estimat Glomerular Filtration Rate > 60 mL/min (>60) Glucose Level 106 MG/DL (74-106) Calcium Level 8.7 MG/DL (8.5-10.1) Intake and Output 09/16/19 09/17/19 19:00 07:00 Intake Total 1392.5 ml 612.5 ml Balance 1392.5 ml 612.5 ml Intake Oral 420 ml IV Total 192.5 ml 192.5 ml Other 1200 ml # Voids 3 Objective PHYSICAL EXAMINATION: GENERAL: The patient is a well-developed and well-nourished male, in no apparent distress. HEENT: Eyes, pupils are equal and responsive to light and accommodation. Extraocular movements are intact. NECK: Supple without lymphadenopathy. CHEST: Lungs are clear to auscultation bilaterally without wheezes or rales. CARDIOVASCULAR: Regular rhythm and rate. S1, S2 are normal without murmurs, rubs, or gallops. ABDOMEN: Soft, nontender, and nondistended. Positive bowel sounds. No evidence of hepatosplenomegaly. Currently, no rebound or guarding noted. EXTREMITIES: Negative for clubbing, cyanosis, or edema. RECTAL/GENITAL: Not performed. NEUROLOGIC: Cranial nerves II through XII are grossly intact without focal deficits. Motor strength is 5/5 bilaterally. Deep tendon reflexes are 2+ plantar. Assessment/Plan Assessment/Plan ASSESSMENT: This is a 44-year-old male. 1. Laceration of the right upper and lower eyelid. 2. Contusion of the right eye. 3. Fatigue. 4. Bronchitis. 5. Hypertension. 6. Schizophrenia. TREATMENT: 1. Laceration of the right upper and lower eyelid. An Ophthalmology consultation has been obtained with Dr. Medardo Tinsley. The patient is status post laceration repair under local anesthesia. We will follow recommendations of Ophthalmology. 2. Contusion of the right eye. 3. Bronchitis. The patient has been placed empirically on intravenous Zosyn. Oral prednisone taper per Pulmonary=Dr. Ana Dorado. We will follow recommendations of Pulmonary. 4. Hypertension. Continue propranolol and amlodipine as above. 5. Schizophrenia. Continue Zyprexa, Remeron, Ativan, Prozac and Depakote as above. 6. D/W patient and mother at bedside 7. Discharge plan: [facility] James Miner MD Sep 17, 2019 19:28
--- NOTE | 2019-09-17 20:01 | NUR ---
NURSE NOTES: Received patient awake, alert, verbal, resting in bed, comfortable.
[2019-09-17 20:07] VITALS: BP 128/84
[2019-09-17] MEDS ORDERED: OLANZapine 10mg tab ORAL SCH (21:00)
[2019-09-18 00:22] VITALS: BP 130/94
[2019-09-18] MEDS: Piperacillin/Tazobactam 3.375 GM in D5W 110 ML IVPB SCH ×2 (03:59→13:57)
[2019-09-18 04:35] VITALS: BP 139/80
--- NOTE | 2019-09-18 06:00 | Consultation ---
DATE OF CONSULTATION: 09/17/2019 HISTORY OF PRESENT ILLNESS: The patient is a 44-year-old male with a history of schizophrenia who has been admitted to the hospital after he had a fall and his eye. His eyelid was sutured up. The patient is very anxious, pacing around the unit. he has a history of schizophrenia and has been on Zyprexa. Sleep and appetite are adequate. He is withdrawn and isolative. PAST PSYCHIATRIC HISTORY: Schizophrenia, psychiatric hospitalization, and Zyprexa. PAST MEDICAL HISTORY: Hypertension. MEDICATIONS: Include Depakote, Prozac, Ativan, mirtazapine, Zyprexa, and benztropine. ALLERGIES: No known drug allergies. SUBSTANCE ABUSE HISTORY: No known history of illicit drug use or alcohol. MENTAL STATUS EXAMINATION: The patient is alert and oriented times self, place, and situation. He is pleasant. Mood is dysphoric. Affect is flat. Thought process is concrete. Thought content, no suicidal or homicidal ideation. Cognition is impaired. Insight and judgment are impaired. ASSESSMENT: Milmine I Schizoaffective disorder. Milmine II Deferred. Milmine III As above. Milmine IV Low. Milmine V 25. PLAN: 1. The patient's Zyprexa will be decreased to 30 mg and we will change it to nightly. 2. Remeron. 3. Depakote. 4. Provide the patient with reality orientation. Nallely Manriquez M.D. DR: DENISE JOB#: [id number] CC:
[2019-09-18 06:30] LABS: BASOPHILS % (AUTO) 0.7 % (0.0-2.0); HEMATOCRIT 43.3 % (42.0-52.0); HEMOGLOBIN 15.1 G/DL (14.2-18.0); LYMPHOCYTES % (AUTO) 22.5 % (20.0-45.0); MEAN CORPUSCULAR VOLUME 93 FL (80-99); MONOCYTES % (AUTO) 8.4 % (1.0-10.0); NEUTROPHILS % (AUTO) 67.3 % (45.0-75.0); PLATELET COUNT 319 K/UL (150-450); RED BLOOD COUNT 4.66 M/UL (4.70-6.10); RED CELL DISTRIBUTION WIDTH 11.5 % (11.6-14.8); WHITE BLOOD COUNT 13.4 K/UL (4.8-10.8)
[2019-09-18 06:45] LABS: ALANINE AMINOTRANSFERASE 56 U/L (12-78); ALBUMIN 2.7 G/DL (3.4-5.0); ALBUMIN/GLOBULIN RATIO 0.7 (1.0-2.7); ALKALINE PHOSPHATASE 55 U/L (46-116); ANION GAP 12 mmol/L (5-15); ASPARTATE AMINO TRANSFERASE 21 U/L (15-37); BILIRUBIN,TOTAL 0.2 MG/DL (0.2-1.0); BLOOD UREA NITROGEN 17 mg/dL (7-18); CALCIUM 8.8 MG/DL (8.5-10.1); CARBON DIOXIDE 27 MMOL/L (21-32); CHLORIDE 107 MMOL/L (98-107); CREATININE 1.1 MG/DL (0.55-1.30); POTASSIUM 4.2 MMOL/L (3.5-5.1); SODIUM 146 MMOL/L (136-145)
--- NOTE | 2019-09-18 07:10 | NUR ---
HAND-OFF: Report given to Jarrell Bullock RN.
[2019-09-18 08:00] VITALS: BP 129/109
[2019-09-18] MEDS: Heparin 5000 units/ml inj SUBQ SCH (08:20)
[2019-09-18] MEDS: Theophylline ER 100mg ORAL SCH (08:21)
[2019-09-18] MEDS: Depakote 500mg tab ORAL SCH (08:21)
--- NOTE | 2019-09-18 09:31 | NUR ---
NURSE NOTES: pt awake alert, no distress. no sob. no c/o pain. call light within reach. will monitor. pt ambulates as tolerated.
[2019-09-18 12:00] VITALS: BP 110/90
--- NOTE | 2019-09-18 12:29 | Pulmonology Progress Note ---
Assessment/Plan Problems: (1) Purulent bronchitis (2) Acute bronchospasm due to viral infection (3) Facial laceration (4) Drug dependency Assessment/Plan improving wbc still high cultures pending no sputum yet will get ID evaluation check wbc in am less short of breath less cough Subjective ROS Limited/Unobtainable: No Constitutional: Reports: no symptoms HEENT: Repors: no symptoms Allergies: Coded Allergies: No Known Allergies (Unverified , 05/15/19) Objective Last 24 Hour Vital Signs Date Time Temp Pulse Resp B/P (MAP) Pulse Ox O2 Delivery O2 Flow Rate FiO2 09/18/19 08:21 105 129/109 09/18/19 08:00 98.4 105 17 129/109 (116) 99 09/18/19 07:51 Room Air 09/18/19 07:25 89 16 97 Room Air 21 09/18/19 04:35 98.4 96 17 139/80 (99) 99 09/18/19 00:22 98.1 90 17 130/94 (106) 93 09/17/19 21:21 Room Air 09/17/19 20:23 72 20 97 Room Air 21 09/17/19 20:07 97.9 70 18 128/84 (99) 94 09/17/19 16:00 97.7 73 20 125/83 (97) 94 Intake and Output 09/17/19 09/18/19 19:00 07:00 Intake Total 1080 ml 192.5 ml Balance 1080 ml 192.5 ml Intake Oral 1080 ml IV Total 192.5 ml # Voids 4 2 General Appearance: WD/WN HEENT: normocephalic, atraumatic Respiratory/Chest: chest wall non-tender, lungs clear Cardiovascular: normal peripheral pulses, normal rate Abdomen: normal bowel sounds, soft, non tender, no scars Genitourinary: normal external genitalia Skin: no rash, no lesions Microbiology Date/Time Source Procedure Growth Status 09/17/19 17:15 Urine,Clean Catch Urine Culture - Preliminary NO GROWTH Resulted Laboratory Tests 09/18/19 05:20: White Blood Count 13.4H, Red Blood Count 4.66L, Hemoglobin 15.1, Hematocrit 43.3 , Mean Corpuscular Volume 93, Mean Corpuscular Hemoglobin 32.3H, Mean Corpuscular Hemoglobin Concent 34.8, Red Cell Distribution Width 11.5L, Platelet Count 319, Mean Platelet Volume 6.8, Neutrophils (%) (Auto) 67.3, Lymphocytes (%) (Auto) 22.5, Monocytes (%) (Auto) 8.4, Eosinophils (%) (Auto) 1.0, Basophils (%) (Auto) 0.7, Erythrocyte Sedimentation Rate 24H, Sodium Level 146H, Potassium Level 4.2, Chloride Level 107, Carbon Dioxide Level 27, Anion Gap 12, Blood Urea Nitrogen 17, Creatinine 1.1, Estimat Glomerular Filtration Rate > 60, Glucose Level 102, Calcium Level 8.8, Phosphorus Level 4.0, Magnesium Level 2.2, Total Bilirubin 0.2, Aspartate Amino Transf (AST/SGOT) 21, Alanine Aminotransferase (ALT/SGPT) 56, Alkaline Phosphatase 55, C-Reactive Protein, Quantitative 2.5H, Total Protein 6.4, Albumin 2.7L, Globulin 3.7, Albumin/Globulin Ratio 0.7L Current Medications Medications (Trade) Dose Ordered Sig/William Route PRN Reason Start Time Stop Time Status Last Admin Dose Admin Albuterol/ Ipratropium (Albuterol/ Ipratropium) 3 ml EVERY 4 HOURS PRN HHN dyspnea 09/13/19 21:30 09/18/19 21:29 Amlodipine Besylate (Norvasc) 5 mg DAILY ORAL 09/14/19 09:00 10/14/19 08:59 09/18/19 08:21 Dextrose (Dextrose 50%) 25 ml Q30M PRN IV Hypoglycemia 09/13/19 21:30 10/13/19 21:29 Dextrose (Dextrose 50%) 50 ml Q30M PRN IV Hypoglycemia 09/13/19 21:30 10/13/19 21:29 Divalproex Sodium (Depakote) 1,000 mg DAILY ORAL 09/14/19 09:00 10/14/19 08:59 09/18/19 08:21 Fluoxetine HCl (PROzac) 60 mg DAILY ORAL 09/14/19 09:00 10/14/19 08:59 09/18/19 08:20 Heparin Sodium (Porcine) (Heparin 5000 units/ml) 5,000 units EVERY 12 HOURS SUBQ 09/14/19 09:00 10/14/19 08:59 09/18/19 08:20 Lorazepam (Ativan 2mg/ml 1ml) 0.5 mg Q4H PRN IV For Anxiety 09/13/19 21:30 09/20/19 21:29 Mirtazapine (Remeron) 7.5 mg BEDTIME ORAL 09/14/19 21:00 10/14/19 20:59 09/17/19 20:28 Nitroglycerin (Ntg) 0.4 mg Q5M X 3 DOSES PRN SL Prn Chest Pain 09/13/19 21:30 10/13/19 21:29 Olanzapine (ZyPREXA) 30 mg BEDTIME ORAL 09/17/19 21:00 10/17/19 20:59 09/17/19 20:28 Ondansetron HCl (Zofran) 4 mg Q6H PRN IVP Nausea & Vomiting 09/13/19 21:30 10/13/19 21:29 Piperacillin Sod/ Tazobactam Sod 3.375 gm/Dextrose 110 ml @ 27.5 mls/hr EVERY 8 HOURS IVPB 09/13/19 22:00 09/20/19 21:59 09/18/19 03:59 Promethazine HCl/ Codeine (Phenergan with Codeine) 5 ml EVERY 6 HOURS PRN ORAL cough 09/13/19 21:30 10/13/19 21:29 09/16/19 08:42 Temazepam (Restoril) 15 mg HSPRN PRN ORAL Insomnia 09/13/19 21:30 09/20/19 21:29 Theophylline (Milton-Dur) 100 mg EVERY 12 HOURS ORAL 09/14/19 09:00 10/14/19 08:59 09/18/19 08:21 Ana Dorado MD Sep 18, 2019 12:29
[2019-09-18 16:00] VITALS: BP 113/70
--- NOTE | 2019-09-18 16:42 | Internal Med Progress Note ---
Subjective Date of Service: Sep 18, 2019 Physician Name James Miner Attending Physician Joey Tran MD Current Medications Medications (Trade) Dose Ordered Sig/William Route PRN Reason Start Time Stop Time Status Last Admin Dose Admin Albuterol/ Ipratropium (Albuterol/ Ipratropium) 3 ml EVERY 4 HOURS PRN HHN dyspnea 09/13/19 21:30 09/18/19 21:29 Amlodipine Besylate (Norvasc) 5 mg DAILY ORAL 09/14/19 09:00 10/14/19 08:59 09/18/19 08:21 Dextrose (Dextrose 50%) 25 ml Q30M PRN IV Hypoglycemia 09/13/19 21:30 10/13/19 21:29 Dextrose (Dextrose 50%) 50 ml Q30M PRN IV Hypoglycemia 09/13/19 21:30 10/13/19 21:29 Divalproex Sodium (Depakote) 1,000 mg DAILY ORAL 09/14/19 09:00 10/14/19 08:59 09/18/19 08:21 Fluoxetine HCl (PROzac) 60 mg DAILY ORAL 09/14/19 09:00 10/14/19 08:59 09/18/19 08:20 Heparin Sodium (Porcine) (Heparin 5000 units/ml) 5,000 units EVERY 12 HOURS SUBQ 09/14/19 09:00 10/14/19 08:59 09/18/19 08:20 Lorazepam (Ativan 2mg/ml 1ml) 0.5 mg Q4H PRN IV For Anxiety 09/13/19 21:30 09/20/19 21:29 Mirtazapine (Remeron) 7.5 mg BEDTIME ORAL 09/14/19 21:00 10/14/19 20:59 09/17/19 20:28 Nitroglycerin (Ntg) 0.4 mg Q5M X 3 DOSES PRN SL Prn Chest Pain 09/13/19 21:30 10/13/19 21:29 Olanzapine (ZyPREXA) 30 mg BEDTIME ORAL 09/17/19 21:00 10/17/19 20:59 09/17/19 20:28 Ondansetron HCl (Zofran) 4 mg Q6H PRN IVP Nausea & Vomiting 09/13/19 21:30 10/13/19 21:29 Piperacillin Sod/ Tazobactam Sod 3.375 gm/Dextrose 110 ml @ 27.5 mls/hr EVERY 8 HOURS IVPB 09/13/19 22:00 09/20/19 21:59 09/18/19 13:57 Promethazine HCl/ Codeine (Phenergan with Codeine) 5 ml EVERY 6 HOURS PRN ORAL cough 09/13/19 21:30 10/13/19 21:29 09/16/19 08:42 Temazepam (Restoril) 15 mg HSPRN PRN ORAL Insomnia 09/13/19 21:30 09/20/19 21:29 Theophylline (Milton-Dur) 100 mg EVERY 12 HOURS ORAL 09/14/19 09:00 10/14/19 08:59 09/18/19 08:21 Allergies: Coded Allergies: No Known Allergies (Unverified , 05/15/19) ROS Limited/Unobtainable: No Constitutional: Reports: no symptoms HEENT: Reports: no symptoms Cardiovascular: Reports: no symptoms Respiratory: Reports: no symptoms Gastrointestinal/Abdominal: Reports: no symptoms Genitourinary: Reports: no symptoms Neurologic/Psychiatric: Reports: no symptoms Subjective 44 YO M admitted with laceration to right eyelid. Now bronchitis. Cover for Int Fuad-DR Tran. Objective Last Vital Signs Date Time Temp Pulse Resp B/P (MAP) Pulse Ox O2 Delivery O2 Flow Rate FiO2 09/18/19 16:00 98.4 80 17 113/70 (84) 99 09/18/19 07:51 Room Air 09/18/19 07:25 21 09/13/19 21:30 1.0 Laboratory Tests Test 09/18/19 05:20 White Blood Count 13.4 K/UL (4.8-10.8) H Red Blood Count 4.66 M/UL (4.70-6.10) L Hemoglobin 15.1 G/DL (14.2-18.0) Hematocrit 43.3 % (42.0-52.0) Mean Corpuscular Volume 93 FL (80-99) Mean Corpuscular Hemoglobin 32.3 PG (27.0-31.0) H Mean Corpuscular Hemoglobin Concent 34.8 G/DL (32.0-36.0) Red Cell Distribution Width 11.5 % (11.6-14.8) L Platelet Count 319 K/UL (150-450) Mean Platelet Volume 6.8 FL (6.5-10.1) Neutrophils (%) (Auto) 67.3 % (45.0-75.0) Lymphocytes (%) (Auto) 22.5 % (20.0-45.0) Monocytes (%) (Auto) 8.4 % (1.0-10.0) Eosinophils (%) (Auto) 1.0 % (0.0-3.0) Basophils (%) (Auto) 0.7 % (0.0-2.0) Erythrocyte Sedimentation Rate 24 MM/HR (0-15) H Sodium Level 146 MMOL/L (136-145) H Potassium Level 4.2 MMOL/L (3.5-5.1) Chloride Level 107 MMOL/L (98-107) Carbon Dioxide Level 27 MMOL/L (21-32) Anion Gap 12 mmol/L (5-15) Blood Urea Nitrogen 17 mg/dL (7-18) Creatinine 1.1 MG/DL (0.55-1.30) Estimat Glomerular Filtration Rate > 60 mL/min (>60) Glucose Level 102 MG/DL (74-106) Calcium Level 8.8 MG/DL (8.5-10.1) Phosphorus Level 4.0 MG/DL (2.5-4.9) Magnesium Level 2.2 MG/DL (1.8-2.4) Total Bilirubin 0.2 MG/DL (0.2-1.0) Aspartate Amino Transf (AST/SGOT) 21 U/L (15-37) Alanine Aminotransferase (ALT/SGPT) 56 U/L (12-78) Alkaline Phosphatase 55 U/L (46-116) C-Reactive Protein, Quantitative 2.5 mg/dL (0.00-0.90) H Total Protein 6.4 G/DL (6.4-8.2) Albumin 2.7 G/DL (3.4-5.0) L Globulin 3.7 g/dL Albumin/Globulin Ratio 0.7 (1.0-2.7) L Microbiology Date/Time Source Procedure Growth Status 09/17/19 17:15 Urine,Clean Catch Urine Culture - Preliminary NO GROWTH Resulted Intake and Output 09/17/19 09/18/19 19:00 07:00 Intake Total 1080 ml 192.5 ml Balance 1080 ml 192.5 ml Intake Oral 1080 ml IV Total 192.5 ml # Voids 4 2 Objective PHYSICAL EXAMINATION: GENERAL: The patient is a well-developed and well-nourished male, in no apparent distress. HEENT: Eyes, pupils are equal and responsive to light and accommodation. Extraocular movements are intact. NECK: Supple without lymphadenopathy. CHEST: Lungs are clear to auscultation bilaterally without wheezes or rales. CARDIOVASCULAR: Regular rhythm and rate. S1, S2 are normal without murmurs, rubs, or gallops. ABDOMEN: Soft, nontender, and nondistended. Positive bowel sounds. No evidence of hepatosplenomegaly. Currently, no rebound or guarding noted. EXTREMITIES: Negative for clubbing, cyanosis, or edema. RECTAL/GENITAL: Not performed. NEUROLOGIC: Cranial nerves II through XII are grossly intact without focal deficits. Motor strength is 5/5 bilaterally. Deep tendon reflexes are 2+ plantar. Assessment/Plan Assessment/Plan ASSESSMENT: This is a 44-year-old male. 1. Laceration of the right upper and lower eyelid. 2. Contusion of the right eye. 3. Fatigue. 4. Bronchitis. 5. Hypertension. 6. Schizophrenia. TREATMENT: 1. Laceration of the right upper and lower eyelid. An Ophthalmology consultation has been obtained with Dr. Medardo Tinsley. The patient is status post laceration repair under local anesthesia. We will follow recommendations of Ophthalmology. 2. Contusion of the right eye. 3. Bronchitis. The patient has been placed empirically on intravenous Zosyn. Oral prednisone taper per Pulmonary=Dr. Ana Dorado. We will follow recommendations of Pulmonary. 4. Hypertension. Continue propranolol and amlodipine as above. 5. Schizophrenia. Continue Zyprexa, Remeron, Ativan, Prozac and Depakote as above. 6. D/W patient and mother at bedside 7. [facility] James Miner MD Sep 18, 2019 16:42
--- NOTE | 2019-09-18 16:59 | NUR ---
NURSE NOTES: patient states he got the flu vaccine "couple months ago" pt aware of dcp back [facility]. iv removed no bleeding. dc instructions verbalized w understanding.arm band removed
--- NOTE | 2019-09-18 17:29 | NUR ---
NURSE NOTES: [facility] [id number] Mauro Moser from patient case coordinator aware
--- NOTE | 2019-09-18 18:16 | Infectious Diseases Prog Note ---
Assessment/Plan Assessment/Plan ASSESSMENT: The patient is a 44-year-old male with: Cough/bronchitis. Right eye laceration (no evidence of cellulitis or abscess). Afebrile. Mild leukocytosis HYN Schizophrenia PLAN: Continue patient on IV Zosyn day number # 6/7 Cultures( blood urine, sputum). Monitor CBC. Monitor BMP. 5. Monitor the patient's clinical course and laboratories and based on those, we will do further recommendations. Subjective Allergies: Coded Allergies: No Known Allergies (Unverified , 05/15/19) Subjective afebrile Objective Vital Signs Last 24 Hour Vital Signs Date Time Temp Pulse Resp B/P (MAP) Pulse Ox O2 Delivery O2 Flow Rate FiO2 09/18/19 16:00 98.4 80 17 113/70 (84) 99 09/18/19 12:00 98.4 80 17 110/90 (97) 99 09/18/19 08:21 105 129/109 09/18/19 08:00 98.4 105 17 129/109 (116) 99 09/18/19 07:51 Room Air 09/18/19 07:25 89 16 97 Room Air 21 09/18/19 04:35 98.4 96 17 139/80 (99) 99 09/18/19 00:22 98.1 90 17 130/94 (106) 93 09/17/19 21:21 Room Air 09/17/19 20:23 72 20 97 Room Air 21 09/17/19 20:07 97.9 70 18 128/84 (99) 94 Height (Feet): 6 Height (Inches): 3.00 Weight (Pounds): 238 HEENT: anicteric Respiratory/Chest: no respiratory distress Cardiovascular: regular rhythm Abdomen: no organomegaly Microbiology Date/Time Source Procedure Growth Status 09/17/19 17:15 Urine,Clean Catch Urine Culture - Preliminary NO GROWTH Resulted Laboratory Tests Test 09/18/19 05:20 White Blood Count 13.4 K/UL (4.8-10.8) H Red Blood Count 4.66 M/UL (4.70-6.10) L Hemoglobin 15.1 G/DL (14.2-18.0) Hematocrit 43.3 % (42.0-52.0) Mean Corpuscular Volume 93 FL (80-99) Mean Corpuscular Hemoglobin 32.3 PG (27.0-31.0) H Mean Corpuscular Hemoglobin Concent 34.8 G/DL (32.0-36.0) Red Cell Distribution Width 11.5 % (11.6-14.8) L Platelet Count 319 K/UL (150-450) Mean Platelet Volume 6.8 FL (6.5-10.1) Neutrophils (%) (Auto) 67.3 % (45.0-75.0) Lymphocytes (%) (Auto) 22.5 % (20.0-45.0) Monocytes (%) (Auto) 8.4 % (1.0-10.0) Eosinophils (%) (Auto) 1.0 % (0.0-3.0) Basophils (%) (Auto) 0.7 % (0.0-2.0) Erythrocyte Sedimentation Rate 24 MM/HR (0-15) H Sodium Level 146 MMOL/L (136-145) H Potassium Level 4.2 MMOL/L (3.5-5.1) Chloride Level 107 MMOL/L (98-107) Carbon Dioxide Level 27 MMOL/L (21-32) Anion Gap 12 mmol/L (5-15) Blood Urea Nitrogen 17 mg/dL (7-18) Creatinine 1.1 MG/DL (0.55-1.30) Estimat Glomerular Filtration Rate > 60 mL/min (>60) Glucose Level 102 MG/DL (74-106) Calcium Level 8.8 MG/DL (8.5-10.1) Phosphorus Level 4.0 MG/DL (2.5-4.9) Magnesium Level 2.2 MG/DL (1.8-2.4) Total Bilirubin 0.2 MG/DL (0.2-1.0) Aspartate Amino Transf (AST/SGOT) 21 U/L (15-37) Alanine Aminotransferase (ALT/SGPT) 56 U/L (12-78) Alkaline Phosphatase 55 U/L (46-116) C-Reactive Protein, Quantitative 2.5 mg/dL (0.00-0.90) H Total Protein 6.4 G/DL (6.4-8.2) Albumin 2.7 G/DL (3.4-5.0) L Globulin 3.7 g/dL Albumin/Globulin Ratio 0.7 (1.0-2.7) L Current Medications Medications (Trade) Dose Ordered Sig/William Route PRN Reason Start Time Stop Time Status Last Admin Dose Admin Albuterol/ Ipratropium (Albuterol/ Ipratropium) 3 ml EVERY 4 HOURS PRN HHN dyspnea 09/13/19 21:30 09/18/19 21:29 Amlodipine Besylate (Norvasc) 5 mg DAILY ORAL 09/14/19 09:00 10/14/19 08:59 09/18/19 08:21 Dextrose (Dextrose 50%) 25 ml Q30M PRN IV Hypoglycemia 09/13/19 21:30 10/13/19 21:29 Dextrose (Dextrose 50%) 50 ml Q30M PRN IV Hypoglycemia 09/13/19 21:30 10/13/19 21:29 Divalproex Sodium (Depakote) 1,000 mg DAILY ORAL 09/14/19 09:00 10/14/19 08:59 09/18/19 08:21 Fluoxetine HCl (PROzac) 60 mg DAILY ORAL 09/14/19 09:00 10/14/19 08:59 09/18/19 08:20 Heparin Sodium (Porcine) (Heparin 5000 units/ml) 5,000 units EVERY 12 HOURS SUBQ 09/14/19 09:00 10/14/19 08:59 09/18/19 08:20 Lorazepam (Ativan 2mg/ml 1ml) 0.5 mg Q4H PRN IV For Anxiety 09/13/19 21:30 09/20/19 21:29 Mirtazapine (Remeron) 7.5 mg BEDTIME ORAL 09/14/19 21:00 10/14/19 20:59 09/17/19 20:28 Nitroglycerin (Ntg) 0.4 mg Q5M X 3 DOSES PRN SL Prn Chest Pain 09/13/19 21:30 10/13/19 21:29 Olanzapine (ZyPREXA) 30 mg BEDTIME ORAL 09/17/19 21:00 10/17/19 20:59 09/17/19 20:28 Ondansetron HCl (Zofran) 4 mg Q6H PRN IVP Nausea & Vomiting 09/13/19 21:30 10/13/19 21:29 Piperacillin Sod/ Tazobactam Sod 3.375 gm/Dextrose 110 ml @ 27.5 mls/hr EVERY 8 HOURS IVPB 09/13/19 22:00 09/20/19 21:59 09/18/19 13:57 Promethazine HCl/ Codeine (Phenergan with Codeine) 5 ml EVERY 6 HOURS PRN ORAL cough 09/13/19 21:30 10/13/19 21:29 09/16/19 08:42 Temazepam (Restoril) 15 mg HSPRN PRN ORAL Insomnia 09/13/19 21:30 09/20/19 21:29 Theophylline (Milton-Dur) 100 mg EVERY 12 HOURS ORAL 09/14/19 09:00 10/14/19 08:59 09/18/19 08:21 Junito Jorge MD Sep 18, 2019 18:16
--- NOTE | 2019-09-18 19:10 | NUR ---
HAND-OFF: Report given to KALEB RICHEY.
--- NOTE | 2019-09-18 19:15 | NUR ---
NURSE NOTES: Received patient awake, alert, verbal, awaiting ambulance for discharge to board and care.
--- NOTE | 2019-09-18 19:59 | NUR ---
NURSE NOTES: Patient discharged to board and care by ambulance in stable condition.
--- NOTE | 2019-09-19 06:15 | Progress Note ---
DATE: 09/18/2019 SUBJECTIVE: The patient is pacing around the unit. He is on multiple psychotropic medications. We discussed with him about medications pharmacy and smoking. The patient understands, able to comprehend. The patient is gradually improving. No behavior issues noted. Pleasant. MENTAL STATUS EXAMINATION: The patient is alert and oriented times self, place, and situation. Mood is neutral. Affect is constricted, congruent with mood. Thought process is concrete. Thought content, no suicidal or homicidal ideation. Cognition is intact. Insight and judgment fair. ASSESSMENT: Schizoaffective disorder. PLAN: 1. The patient would like to continue on all his medications. 2. Only Zyprexa was decreased. 3. Provide the patient with reality orientation. Nallely Manriquez M.D. DR: Gregoria JOB#: [id number] CC:
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
== END 2019-09-18 19:55 | disposition home or self-care (01) | DRG 125 ==
LOC: EMR 16:28 → EDBEDREQ 21:02 → INTOOBSV 21:24 → 4E 21:24 → OBSVTOIN 21:24 → 4E 09-14 15:03
PROC: 08QNXZZ Repair Right Upper Eyelid, External Approach (ICD-10-PCS; principal; 2019-09-13)
PROC: 08QQXZZ Repair Right Lower Eyelid, External Approach (ICD-10-PCS; principal; 2019-09-13)
DX: S01.111A Laceration without foreign body of right eyelid and periocular area, initial encounter (principal); F19.20 Other psychoactive substance dependence, uncomplicated; S00.11XA Contusion of right eyelid and periocular area, initial encounter; W19.XXXA Unspecified fall, initial encounter; J20.8 Acute bronchitis due to other specified organisms; J98.01 Acute bronchospasm; E87.5 Hyperkalemia; I10 Essential (primary) hypertension; F25.9 Schizoaffective disorder, unspecified; R74.0 Nonspecific elevation of levels of transaminase and lactic acid dehydrogenase [LDH]; R53.1 Weakness
CPT/HCPCS: 36415; 70450; 70480; 71045; 80048; 80053; 80307; 81003; 83735; 84100; 84484; 85007; 85025; 85651; 86140; 86710; 87040; 87086; 93005; 94664; 96361; 96365; 99285; J7030